=== PATIENT | male | born 1930 | race Caucasian/White ===

== ENCOUNTER 2016-07-29 14:09 | Outpatient (CLI) | END 2016-07-29 14:10 | disposition home or self-care (01) ==

== ENCOUNTER 2016-08-05 13:42 | Outpatient (CLI) | payer MEDICARE, OTHER | END 2016-08-05 13:43 | disposition home or self-care (01) | DX: I48.91 Unspecified atrial fibrillation (principal); Z79.01 Long term (current) use of anticoagulants ==

== ENCOUNTER 2016-08-25 13:50 | Outpatient (CLI) | payer MEDICARE, OTHER | END 2016-08-25 13:51 | disposition home or self-care (01) | DX: I48.91 Unspecified atrial fibrillation (principal); Z79.01 Long term (current) use of anticoagulants ==

== ENCOUNTER 2016-09-22 14:12 | Outpatient (CLI) | payer MEDICARE, OTHER | END 2016-09-22 14:13 | disposition home or self-care (01) | DX: I48.91 Unspecified atrial fibrillation (principal); Z79.01 Long term (current) use of anticoagulants ==

== ENCOUNTER 2016-10-19 11:18 | Outpatient (CLI) | payer MEDICARE, OTHER | END 2016-10-19 11:19 | disposition home or self-care (01) | DX: I48.91 Unspecified atrial fibrillation (principal); Z79.01 Long term (current) use of anticoagulants ==

== ENCOUNTER 2016-11-02 11:32 | Outpatient (CLI) | payer MEDICARE, OTHER | END 2016-11-02 11:33 | disposition home or self-care (01) | DX: I48.91 Unspecified atrial fibrillation (principal); Z79.01 Long term (current) use of anticoagulants ==

== ENCOUNTER 2016-11-16 13:35 | Outpatient (CLI) | payer MEDICARE, OTHER | END 2016-11-16 13:36 | DX: I48.91 Unspecified atrial fibrillation (principal); Z79.01 Long term (current) use of anticoagulants ==

== ENCOUNTER 2016-12-04 09:48 | Outpatient (CLI) | payer MEDICARE, OTHER | END 2016-12-04 09:49 | disposition home or self-care (01) | DX: I48.91 Unspecified atrial fibrillation (principal); Z79.01 Long term (current) use of anticoagulants ==

== ENCOUNTER 2016-12-31 08:00 | Outpatient (CLI) | payer MEDICARE, OTHER | END 2016-12-31 08:01 | disposition home or self-care (01) | LOC: LAB.N 08:00 | PROVIDERS: ATTEND Internal Medicine | DX: I48.91 Unspecified atrial fibrillation (principal) | CPT/HCPCS: 85610 ==

== ENCOUNTER 2017-01-07 10:06 | Outpatient (CLI) | payer MEDICARE, OTHER | END 2017-01-07 10:07 | disposition home or self-care (01) | LOC: LAB.N 10:06 | PROVIDERS: ATTEND Internal Medicine | DX: I48.91 Unspecified atrial fibrillation (principal) | CPT/HCPCS: 85610 ==

== ENCOUNTER 2017-02-01 08:00 | Outpatient (CLI) | payer MEDICARE, OTHER | END 2017-02-01 08:01 | disposition home or self-care (01) | DX: I48.91 Unspecified atrial fibrillation (principal) ==

== ENCOUNTER 2017-03-01 08:00 | Outpatient (CLI) | payer MEDICARE, OTHER | END 2017-03-01 08:01 | disposition home or self-care (01) | LOC: LAB.N 08:00 | PROVIDERS: ATTEND Internal Medicine | DX: I48.91 Unspecified atrial fibrillation (principal) | CPT/HCPCS: 85610 ==

== ENCOUNTER 2017-03-15 09:58 | Outpatient (CLI) | payer MEDICARE, OTHER | END 2017-03-15 09:59 | LOC: LAB.N 09:58 | PROVIDERS: ATTEND Internal Medicine | DX: I48.91 Unspecified atrial fibrillation (principal) | CPT/HCPCS: 85610 ==

== ENCOUNTER 2017-03-31 13:13 | Outpatient (CLI) | payer MEDICARE, OTHER | END 2017-03-31 13:14 | LOC: LAB.N 13:13 | PROVIDERS: ATTEND Internal Medicine | DX: I48.91 Unspecified atrial fibrillation (principal); Z79.01 Long term (current) use of anticoagulants | CPT/HCPCS: 85610 ==

== ENCOUNTER 2017-04-23 14:46 | Outpatient (CLI) | payer MEDICARE, OTHER | END 2017-04-23 14:47 | disposition home or self-care (01) | LOC: LAB.N 14:46 | PROVIDERS: ATTEND Internal Medicine | DX: I48.91 Unspecified atrial fibrillation (principal); Z79.01 Long term (current) use of anticoagulants | CPT/HCPCS: 85610 ==

== ENCOUNTER 2017-05-26 10:46 | Outpatient (CLI) | payer MEDICARE, OTHER ==
[2017-05-26 13:35] LABS: INR 4.5 (0.8-1.2)
== END 2017-05-26 10:47 | disposition home or self-care (01) ==
LOC: LAB.N 10:46
PROVIDERS: ATTEND Internal Medicine
DX: I48.91 Unspecified atrial fibrillation (principal); Z79.01 Long term (current) use of anticoagulants
CPT/HCPCS: 85610

== ENCOUNTER 2017-07-07 14:46 | Outpatient (CLI) | payer MEDICARE, OTHER | END 2017-07-07 14:47 | disposition home or self-care (01) | LOC: LAB.N 14:46 | PROVIDERS: ATTEND Internal Medicine | DX: E87.5 Hyperkalemia (principal) | CPT/HCPCS: 36415; 84132 ==

== ENCOUNTER 2017-07-20 08:00 | Outpatient (CLI) | payer MEDICARE, OTHER | END 2017-07-20 08:01 | disposition home or self-care (01) | LOC: LAB.N 08:00 | PROVIDERS: ATTEND Internal Medicine | DX: I48.91 Unspecified atrial fibrillation (principal); Z79.01 Long term (current) use of anticoagulants | CPT/HCPCS: 85610 ==

== ENCOUNTER 2017-08-18 11:01 | Outpatient (CLI) | payer MEDICARE, OTHER | END 2017-08-18 11:02 | disposition home or self-care (01) | LOC: LAB.N 11:01 | PROVIDERS: ATTEND Internal Medicine | DX: I48.91 Unspecified atrial fibrillation (principal); Z79.01 Long term (current) use of anticoagulants | CPT/HCPCS: 85610 ==

== ENCOUNTER 2017-08-24 13:50 | Outpatient (CLI) | payer MEDICARE, OTHER | END 2017-08-24 13:51 | disposition home or self-care (01) | LOC: DI 13:50 | PROVIDERS: ATTEND Internal Medicine | DX: R06.09 Other forms of dyspnea (principal); I51.7 Cardiomegaly; Z95.0 Presence of cardiac pacemaker | CPT/HCPCS: 93306 ==

== ENCOUNTER 2017-09-22 08:00 | Outpatient (CLI) | payer MEDICARE, OTHER | END 2017-09-22 08:01 | disposition home or self-care (01) | LOC: LAB.N 08:00 | PROVIDERS: ATTEND Internal Medicine | DX: I48.91 Unspecified atrial fibrillation (principal); Z79.01 Long term (current) use of anticoagulants | CPT/HCPCS: 85610 ==

== ENCOUNTER 2017-09-27 09:45 | Outpatient (CLI) | payer MEDICARE, OTHER ==
--- NOTE | 2017-09-27 12:26 | Nuclear Medicine Report ---
EXAM: VENTILATION/PERFUSION SCAN (V/Q SCAN) EXAM DATE: 09/27/2017 10:54 AM. CLINICAL HISTORY: PULMONARY HYPERTENSION. COMPARISON: Chest radiograph, same day. TECHNIQUE: Patient was administered 39.9 mCi of technetium 99m DTPA aerosol by inhalation and 8 stand siomara ventilation images of the lungs were obtained. Next, the patient was injected with 5.3 mCi of ginger hnetium 99m MAA intravenously and 8 standard perfusion images of the lungs were obtained. FINDINGS: Ventilation Scan: There is heterogeneous ventilation pattern with central deposition of the aerosoliz ed radiotracer and multiple areas of decreased or absent perfusion bilaterally. Perfusion Scan: The perfusion pattern is more homogeneous than ventilation. There are several small p eripheral matching ventilation and perfusion defects. No mismatched perfusion defects are evident. IMPRESSION: Low probability pattern for acute pulmonary embolism. [facility] Referring Provider Line: [phone] SITE ID: [id number]
--- NOTE | 2017-09-27 13:09 | XRAY Report ---
TWO VIEW CHEST: 09/27/2017 CLINICAL INDICATION: Pulmonary hypertension. COMPARISON: 10/14/2010. FINDINGS: Frontal and lateral views of the chest demonstrate changes of previous cardiac surgery, stable. The heart is mildly enlarged. Left subclavian single chamber pacemaker is stable. The lungs demonstrate emphysema and fibrosis, increased from previous. Small left effusion is present. No pneumothorax. IMPRESSION: PROGRESSION OF EMPHYSEMA AND FIBROSIS. SMALL LEFT PLEURAL EFFUSION. STABLE POSTOPERATIVE CHANGES AND PACEMAKER. TD: 09/27/2017 13:08
== END 2017-09-27 09:46 | disposition home or self-care (01) ==
LOC: DI 09:45
PROVIDERS: ATTEND Internal Medicine Cardiovascular Disease
DX: I27.20 Pulmonary hypertension, unspecified (principal); J43.9 Emphysema, unspecified; J84.10 Pulmonary fibrosis, unspecified; J90 Pleural effusion, not elsewhere classified; Z95.0 Presence of cardiac pacemaker
CPT/HCPCS: 71046; 78582; A9539; A9540

== ENCOUNTER 2017-09-29 08:00 | Outpatient (CLI) | payer MEDICARE, OTHER | END 2017-09-29 08:01 | disposition home or self-care (01) | LOC: LAB.N 08:00 | PROVIDERS: ATTEND Internal Medicine | DX: I48.91 Unspecified atrial fibrillation (principal); Z79.01 Long term (current) use of anticoagulants | CPT/HCPCS: 85610 ==

== ENCOUNTER 2017-10-08 11:47 | Outpatient (CLI) | payer MEDICARE, OTHER ==
--- NOTE | 2017-10-08 15:28 | CT Report ---
CHEST CT: 10/08/2017 COMPARISON: None. INDICATION: Pulmonary hypertension. TECHNIQUE: Noncontrast axial imaging of the chest with coronal and sagittal reformats. FINDINGS: ICD, sternotomy, and heart valve annular prostheses are noted. There are small pleural effusions with underlying atelectasis. The lungs appear otherwise clear. No pneumothorax. The main pulmonary artery measures 4.4 cm. Right pulmonary artery 3.9 cm. Left pulmonary artery 3.2 cm. There are dense atherosclerotic calcifications of the great vessels and coronary arteries. There are annular prostheses of the mitral and aortic valves. Exophytic left renal cyst is incompletely evaluated. Limited upper abdomen appears otherwise unremarkable in the absence of intravenous contrast. No bone lesions. IMPRESSION: 1. THERE ARE ENLARGED PULMONARY ARTERIES, CONSISTENT WITH THE GIVEN HISTORY OF PULMONARY HYPERTENSION. 2. THERE ARE BILATERAL PLEURAL EFFUSIONS. In accordance with CT protocol optimization, one or more of the following dose reduction techniques were utilized for this exam: automated exposure control, adjustment of mA and/or KV based on patient size, or use of iterative reconstructive technique. TD: 10/08/2017 15:27 MTDD
== END 2017-10-08 11:48 | disposition home or self-care (01) ==
LOC: DI 11:47
PROVIDERS: ATTEND Internal Medicine
DX: I27.20 Pulmonary hypertension, unspecified (principal); J90 Pleural effusion, not elsewhere classified
CPT/HCPCS: 71250; 94010; 94729

== ENCOUNTER 2017-10-18 08:00 | Outpatient (CLI) | payer MEDICARE, OTHER ==
[2017-10-18 19:26] LABS: PT - PROTHROMBIN TIME 42.8 secs (9.9-12.6)
== END 2017-10-18 08:01 ==
LOC: LAB.N 08:00
PROVIDERS: ATTEND Internal Medicine
DX: I48.91 Unspecified atrial fibrillation (principal); Z79.01 Long term (current) use of anticoagulants
CPT/HCPCS: 36415; 85610

== ENCOUNTER 2017-10-23 11:26 | Emergency (ER) | payer MEDICARE, OTHER ==
--- NOTE | 2017-10-23 12:38 | ED Physician Documentation ---
PD HPI LOWER EXT INJURY - Stated complaint Stated Complaint: LEFT LEG PX - Chief complaint Chief Complaint: Ext Problem - History obtained from History obtained from: Patient - History of Present Illness PD HPI LOW EXT INJURY LOCATION: Other (This is a very pleasant 87-year-old gentleman who is status post CABG with left leg vein harvesting remotely, he is on warfarin and digoxin. He had an INR that was high last week and his dose was adjusted, but it has not been checked again since. 2 days ago he had a mechanical slip and fall in his bedroom, he is not quite sure what happened to his leg, maybe it went under him. Ever since then he has had significant swelling and discoloration of the left leg. There was no other injury. He is sure he did not hit his head.) Review of Systems Constitutional: denies: Fever, Chills Cardiac: denies: Chest pain / pressure, Palpitations Respiratory: denies: Dyspnea, Cough GI: denies: Abdominal Pain, Nausea, Vomiting PD PAST MEDICAL HISTORY - Past Medical History Past Medical History: Yes Cardiovascular: Coronary artery disease, Valve disorder Respiratory: Shortness of breath Neuro: None Endocrine/Autoimmune: None GI: None : Other HEENT: None Psych: None Musculoskeletal: None Derm: None Other Past Medical History: Urostomy - Past Surgical History Past Surgical History: Yes Cardiovascular: CABG, Valve replacement - Present Medications Home Medications: Ambulatory Orders Medication Instructions Recorded Confirmed Atenolol [Tenormin] 1 tab PO DAILY 10/23/17 10/23/17 Cephalexin [Keflex] 500 mg PO QID #40 capsule 10/23/17 Digoxin 1 tab PO DAILY 10/23/17 10/23/17 Warfarin Sodium [Coumadin] 1 tab PO DAILY 10/23/17 10/23/17 - Allergies Allergies/Adverse Reactions: Allergies Allergy/AdvReac Type Severity Reaction Status Date / Time No Known Drug Allergies Allergy Verified 10/23/17 11:37 - Social History Does the pt smoke?: No Smoking Status: Never smoker Does the pt drink ETOH?: No Does the pt have substance abuse?: No - Immunizations Immunizations are current?: Yes - POLST Patient has POLST: No PD ED PE NORMAL - Vitals Vital signs reviewed: Yes (Pulse on my exam is 66) - General General: Alert and oriented X 3, No acute distress - Neck Neck: Supple, no meningeal sign, No bony TTP - Cardiac Cardiac: Other (Regular rate and rhythm with frequent extrasystoles, he has an audible S3.) - Respiratory Respiratory: No respiratory distress, Clear bilaterally - Abdomen Abdomen: Normal bowel sounds, Soft, Non tender - Derm Derm: Normal color, Warm and dry - Extremities Extremities: Other (Very tender about the left ankle with discoloration from the ankle to the upper calf and swelling. He also has a ecchymosis centered over the left knee. The foot is warm and well perfused but because of swelling I am unable to appreciate pedal pulses but he has normal pulse oximetry waveform in that foot. There is redness and swelling of the left fourth toe as well.) - Neuro Neuro: Alert and oriented X 3, Normal speech - Psych Psych: Normal mood, Normal affect Results - Vitals Vitals: Vital Signs - 24 hr 10/23/17 10/23/17 11:32 14:34 Temperature 36 C L Heart Rate 126 H 60 Respiratory 18 16 Rate Blood Pressure 158/46 H 188/77 H O2 Saturation 95 100 Oxygen O2 Source Room air - Labs Labs: Laboratory Tests 10/23/17 10/23/17 10/23/17 13:36 13:36 13:36 WBC 9.3 RBC 4.25 L Hgb 11.9 L Hct 36.2 L MCV 85.3 MCH 28.1 MCHC 33.0 RDW 15.1 H Plt Count 143 MPV 7.5 Neut # 7.5 H Lymph # 0.6 L Cooper # 1.1 H Eos # 0.1 Baso # 0.0 Absolute Nucleated RBC 0.00 Nucleated RBC % 0.0 ESR 66 H PT 41.2 H INR 3.8 H Sodium Potassium Chloride Carbon Dioxide Anion Gap BUN Creatinine Estimated GFR (MDRD) Glucose Calcium Total Bilirubin AST ALT Alkaline Phosphatase C-Reactive Protein Total Protein Albumin Globulin Albumin/Globulin Ratio Lipase 10/23/17 13:36 WBC RBC Hgb Hct MCV MCH MCHC RDW Plt Count MPV Neut # Lymph # Cooper # Eos # Baso # Absolute Nucleated RBC Nucleated RBC % ESR PT INR Sodium 136 Potassium 5.0 Chloride 105 Carbon Dioxide 24 Anion Gap 7.0 BUN 50 H Creatinine 1.9 H Estimated GFR (MDRD) 34 L Glucose 105 H Calcium 8.8 Total Bilirubin 0.7 AST 23 ALT 15 Alkaline Phosphatase 58 C-Reactive Protein 17.3 H Total Protein 7.1 Albumin 3.6 Globulin 3.5 Albumin/Globulin Ratio 1.0 Lipase 24 - Rads (name of study) XRays L ankle/foot/tibfib/knee Radiology: EMP read contemporaneously (All neg) LLE DVt study Radiology: Prelim report reviewed (no DVT) PD MEDICAL DECISION MAKING - ED course ED course: 87-year-old gentleman with left leg pain, does not seem to be a vascular issue, seems to be cellulitis emanating from the left fourth toe, nothing to drain at this juncture. His white count is normal but his inflammatory markers are elevated. He was administered Ancef here and close follow-up with his physician was advised. He felt comfortable going home. Departure - Departure Disposition: Home, Self Care Clinical Impression: Supratherapeutic INR Pain in extremity Qualifiers: Extremity pain location: lower extremity Laterality: left Qualified Code(s): M79.605 - Pain in left leg Cellulitis Qualifiers: Site of cellulitis: extremity Site of cellulitis of extremity: lower extremity Laterality: left Qualified Code(s): L03.116 - Cellulitis of left lower limb Condition: Good Record reviewed to determine appropriate education?: Yes Instructions: Cellulitis Dc Prescriptions: Cephalexin [Keflex] 500 mg PO QID #40 capsule Comments: Skip your warfarin today and tomorrow, restarted on Wednesday, taking it only every other day while you are on antibiotics. He should have your INR checked frequently well on antibiotics. Follow-up with Dr. Echevarria Wednesday or Wednesday, return if worsening.
--- NOTE | 2017-10-23 13:41 | XRAY Preliminary Report ---
Exam: XR TIB/FIB LT IMPRESSION: No fracture or subluxation. [facility] SITE ID: [id number]
--- NOTE | 2017-10-23 13:42 | XRAY Report ---
EXAM: LEFT TIBIA/FIBULA RADIOGRAPHY EXAM DATE: 10/23/2017 01:22 PM. CLINICAL HISTORY: Leg injury. COMPARISON: None. TECHNIQUE: 2 views. FINDINGS: Bones: Normal. No fracture or bone lesion. Joints: Joint space and alignment appear satisfactory. Soft Tissues: There are soft tissue surgical clips. IMPRESSION: No fracture or subluxation. [facility] Referring Provider Line: [phone] SITE ID: [id number]
--- NOTE | 2017-10-23 13:44 | XRAY Report ---
EXAM: LEFT KNEE RADIOGRAPHY EXAM DATE: 10/23/2017 01:22 PM. CLINICAL HISTORY: Leg injury. COMPARISON: None. TECHNIQUE: 4 views. FINDINGS: Bones: No acute fracture. Joints: Joint space and alignment appear satisfactory. No joint effusion. Soft Tissues: There are vascular calcifications. IMPRESSION: No fracture or subluxation. [facility] Referring Provider Line: [phone] SITE ID: [id number]
--- NOTE | 2017-10-23 13:44 | XRAY Preliminary Report ---
Exam: XR KNEE 4 VIEW LT IMPRESSION: No fracture or subluxation. [facility] SITE ID: [id number]
[2017-10-23 13:47] LABS: BASOPHILS % (AUTO) 0.3 %; EOSINOPHILS # (AUTO) 0.1 10^3/uL (0.0-0.7); EOSINOPHILS % (AUTO) 1.1 %; HGB - HEMOGLOBIN 11.9 g/dL (14.0-18.0); LYMPHOCYTES # (AUTO) 0.6 10^3/uL (1.5-3.5); LYMPHOCYTES % (AUTO) 6.5 %; MEAN CORPUSCULAR HEMOGLOBIN 28.1 pg (27.0-31.0); MEAN CORPUSCULAR VOLUME 85.3 fL (80.0-94.0); MEAN PLATELET VOLUME 7.5 fL (7.4-11.4); MONOCYTES # (AUTO) 1.1 10^3/uL (0.0-1.0); MONOCYTES % (AUTO) 12.1 %; NEUTROPHILS # (AUTO) 7.5 10^3/uL (1.5-6.6); PLT - PLATELET COUNT 143 10^3/uL (130-450); RED BLOOD COUNT 4.25 10^6/uL (4.70-6.10); RED CELL DISTRIBUTION WIDTH 15.1 % (12.0-15.0); WHITE BLOOD COUNT 9.3 x10^3/uL (4.8-10.8)
--- NOTE | 2017-10-23 13:50 | XRAY Preliminary Report ---
Exam: XR FOOT 3 VIEW LT IMPRESSION: Soft tissue swelling without acute fracture. [facility] SITE ID: [id number]
--- NOTE | 2017-10-23 13:50 | XRAY Report ---
EXAM: LEFT FOOT RADIOGRAPHY EXAM DATE: 10/23/2017 01:22 PM. CLINICAL HISTORY: Leg injury. COMPARISON: None. TECHNIQUE: 3 views. FINDINGS: Bones: Normal. No fractures or bone lesions. Joints: There is mild joint space narrowing and degenerative disease of the first metatarsal-phalange al joint. Soft Tissues: There is soft tissue swelling of the midfoot and forefoot. IMPRESSION: Soft tissue swelling without acute fracture. [facility] Referring Provider Line: [phone] SITE ID: [id number]
--- NOTE | 2017-10-23 13:52 | XRAY Preliminary Report ---
Exam: XR ANKLE 3 VIEW LT IMPRESSION: Soft tissue swelling without acute fracture. [facility] SITE ID: [id number]
--- NOTE | 2017-10-23 13:52 | XRAY Report ---
EXAM: LEFT ANKLE RADIOGRAPHY EXAM DATE: 10/23/2017 01:21 PM. CLINICAL HISTORY: Leg injury. COMPARISON: None. TECHNIQUE: 3 views. FINDINGS: Bones: Normal. No fractures or bone lesions. Joints: Normal. No effusion. No subluxations. The ankle mortise is normally aligned. Soft Tissues: There is generalized ankle soft tissue swelling. There are surgical clips in the medial lower leg. IMPRESSION: Soft tissue swelling without acute fracture. [facility] Referring Provider Line: [phone] SITE ID: [id number]
[2017-10-23 13:54] LABS: INR 3.8 (0.8-1.2); PT - PROTHROMBIN TIME 41.2 secs (9.9-12.6)
[2017-10-23 14:04] LABS: ALBUMIN 3.6 g/dL (3.2-5.5); BILIRUBIN,TOTAL 0.7 mg/dL (0.2-1.0); CALCIUM 8.8 mg/dL (8.5-10.3); CREATININE 1.9 mg/dL (0.6-1.2); CRP - C-REACTIVE PROTEIN 17.3 mg/dL (0-1.0); TOTAL PROTEIN 7.1 g/dL (6.7-8.2)
--- NOTE | 2017-10-23 14:31 | Ultrasound Report ---
EXAM: LEFT LOWER EXTREMITY VENOUS ULTRASOUND EXAM DATE: 10/23/2017 01:40 PM. CLINICAL HISTORY: Swelling redness. COMPARISON: None. TECHNIQUE: Real-time sonographic vascular imaging was performed by the fryer operator through the lower extremity utilizing both color-flow and Doppler spectral analysis. Multiple security systems sales representative static germán ges were saved for review. FINDINGS: Common Femoral Vein (CFV): Normal. CFV-GSV Junction: Normal. Profunda Femoral Vein (PFV): Normal. Femoral Vein (FV) Prox: Normal. Femoral Vein (FV) Mid: Normal. Femoral Vein (FV) Dist: Normal. Popliteal Vein: Normal. Posterior Tibial Veins: Normal. Peroneal Veins: Normal. Other: None. IMPRESSION: No evidence for deep venous thrombosis. [facility] Referring Provider Line: [phone] SITE ID: [id number]
--- NOTE | 2017-10-23 14:31 | Ultrasound Preliminary Report ---
Exam: US DUPLEX EXT VEINS LEFT IMPRESSION: No evidence for deep venous thrombosis. [facility] SITE ID: [id number]
[2017-10-23 14:35] VITALS: BP 188/77
[2017-10-23] MEDS ORDERED: ceFAZolin 1 GM VIAL IM STA (14:50)
== END 2017-10-23 15:20 | disposition home or self-care (01) ==
LOC: ED 11:26
DX: M79.605 Pain in left leg (principal); L03.116 Cellulitis of left lower limb; W18.39XA Other fall on same level, initial encounter; D68.9 Coagulation defect, unspecified; I25.10 Atherosclerotic heart disease of native coronary artery without angina pectoris; Z95.1 Presence of aortocoronary bypass graft; Z79.01 Long term (current) use of anticoagulants
CPT/HCPCS: 36415; 80053; 83690; 85025; 85610; 85651; 86140; 96372; 99283

== ENCOUNTER 2017-10-28 20:15 | Outpatient (CLI) | payer MEDICARE, OTHER | END 2017-10-28 20:16 | disposition short-term general hospital (02) | LOC: EMS 20:15 | PROVIDERS: ATTEND Surgery | DX: S09.90XA Unspecified injury of head, initial encounter (principal); W18.39XA Other fall on same level, initial encounter | CPT/HCPCS: A0425; A0429 ==

== ENCOUNTER 2017-10-31 09:21 | Outpatient (CLI) | payer MEDICARE, OTHER | END 2017-10-31 09:22 | disposition critical access hospital (66) | LOC: EMS 09:21 | PROVIDERS: ATTEND Surgery | DX: R53.83 Other fatigue (principal); R53.1 Weakness; R46.4 Slowness and poor responsiveness | CPT/HCPCS: A0425; A0427 ==

== ENCOUNTER 2017-10-31 10:11 | Emergency (ER) | payer MEDICARE, OTHER ==
--- NOTE | 2017-10-31 10:25 | ED Physician Documentation ---
History of Present Illness - Stated complaint Stated Complaint: GLF - Additonal information Additional information: hx from EMS pt and daughter who is a nurse at [employer] 87 male on coumadin has a PPM no advance directive lives at home had an infected toe so was wearing a boot to protect it, stumbled and fell backward against a car 2 days ago suferring a head injury - seen at [place] [facility], CTH showed no bleed CTCS showed no fx INR was 3.9 and coumadin was decreased, pt was dced he lost his balance and fell in the shower again but seemed to have only hiurt his elbow that time last night he started to develop AMS an dpoor appaeetite and this AM he is very altered and has unequal pupils denies JAVIER and neck pain no NV no numbness weakness Review of Systems Constitutional: denies: Fever, Chills Ears: denies: Drainage/discharge Nose: denies: Epistaxis Cardiac: denies: Chest pain / pressure Respiratory: denies: Dyspnea GI: denies: Abdominal Pain, Nausea, Vomiting Skin: reports: Abrasion (s) (R scalp R elbow chin) Neurologic: reports: Altered mental status, Head injury. denies: Focal weakness , Numbness, Headache Endocrine: reports: Easy bruising / bleeding PD PAST MEDICAL HISTORY - Past Medical History Cardiovascular: Coronary artery disease, Valve disorder Respiratory: Shortness of breath Neuro: None Endocrine/Autoimmune: None GI: None : Other HEENT: None Psych: None Musculoskeletal: None Derm: None - Past Surgical History Past Surgical History: Yes Cardiovascular: CABG, Valve replacement - Present Medications Home Medications: Ambulatory Orders Medication Instructions Recorded Confirmed Atenolol [Tenormin] 1 tab PO DAILY 10/23/17 10/23/17 Cephalexin [Keflex] 500 mg PO QID #40 capsule 10/23/17 Digoxin 1 tab PO DAILY 10/23/17 10/23/17 Warfarin Sodium [Coumadin] 1 tab PO DAILY 10/23/17 10/23/17 - Allergies Allergies/Adverse Reactions: Allergies Allergy/AdvReac Type Severity Reaction Status Date / Time No Known Drug Allergies Allergy Verified 10/23/17 11:37 - Social History Does the pt smoke?: No Smoking Status: Never smoker Does the pt drink ETOH?: No Does the pt have substance abuse?: No - Immunizations Immunizations are current?: Yes - POLST Patient has POLST: No PD ED PE NORMAL - Vitals Vital signs reviewed: Yes - General General: No: Alert and oriented X 3 (answer basic questions, not follwoing all commands) - HEENT HEENT: No: Atraumatic (abrasion to R scalp from hitting car, abrasion to chin from catching on zipper after flexing neck with head injury, unequal EOMI (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 No: RRR (irreg) - Respiratory Respiratory: No respiratory distress - Abdomen Abdomen: Soft, Non tender - Derm Derm: Normal color - Neuro Neuro: No motor deficit, No sensory deficit, Normal speech, Other (alert answere some basic questions). No: flour blender 2-12 intact Eye Opening: Spontaneous Motor: Obeys Commands Verbal: Oriented GCS Score: 15 Results - Vitals Vitals: Vital Signs - 24 hr 10/31/17 10/31/17 10:14 10:54 Temperature 36.0 C L Heart Rate 59 L 65 Respiratory 16 22 Rate Blood Pressure 182/70 H 189/72 H O2 Saturation 94 96 Oxygen O2 Source Nasal cannula - Labs Labs: Laboratory Tests 10/31/17 10:25 Whole Blood INR 2.7 H - Rads (name of study) CTH Radiology: See rad report (large bleed in the R ventricle and less in the L ventricle and small amt SAH, no shift, mass vs clotted blood in R ventricle) CTCS Radiology: See rad report (no acute C spine injury) PD MEDICAL DECISION MAKING - ED course ED course: large R ventricle and small L ventricle and SAH bleed on CT without shift no POLST pt baseline independent functional and lives at home - d/w pt and family and they would like to be considered for neurosurg if possible gave TXA and vit K, FFP will not be thawed prior to anticipated arrival of [facility] pt with 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, also PPM and a fib - reversing coumadin is not without risk - d/w pt and family that the ICH is the most imminently life threatening and they understand and agree with my decision - also d/w HV at this point pt is maintaining his airway and is awake and alert - d/w [facility] as well and they agree to forgo intubation and preserve ability to communicate with pt and do serial neuro exams unless his status changes BP running 180/70 and HR high 50s so MC rec nicardapine or labetolol, pt already on BB would not want to add CCB, both will slow rate as well, started with 10 mg labetolol, he has a PPM in case of more sig bradycardia Departure - Departure Disposition: 02 Transfer Acute Care Hosp Clinical Impression: Anticoagulant long-term use ICH (intracerebral hemorrhage) Qualifiers: Intracerebral hemorrhage etiology: traumatic Encounter type: initial encounter Laterality: unspecified laterality Loss of consciousness presence/duration: without LOC Qualified Code(s): S06.360A - Traumatic hemorrhage of cerebrum, unspecified, without loss of consciousness, initial encounter Head injury Qualifiers: Encounter type: initial encounter Qualified Code(s): S09.90XA - Unspecified injury of head, initial encounter Condition: Serious Discharge Date/Time: 10/31/17 11:39
[2017-10-31] MEDS ORDERED: TRANEXAMIC ACID 1,000 MG in SODIUM CHLORIDE 0.9% 100ML 100 ML IV STA (10:35)
[2017-10-31] MEDS ORDERED: PHYTONADIONE 10 MG/ML AMP IVP STA (10:44)
[2017-10-31 10:54] VITALS: BP 189/72
--- NOTE | 2017-10-31 10:59 | CT Preliminary Report ---
Exam: CT HEAD W/O IMPRESSION: Acute intraventricular hemorrhage markedly expands right lateral ventricle. Small amount of right intraventricular hemorrhage. Trace subarachnoid hemorrhage along the falx. No signficant mid line shift. Findings relayed and read back to at 10:53 AM today. [facility] SITE ID: [id number]
--- NOTE | 2017-10-31 10:59 | CT Report ---
EXAM: CT HEAD EXAM DATE: 10/31/2017 10:37 AM. CLINICAL HISTORY: Fall [place] 2 days ago on couamdin AMS unequal pupils. COMPARISON: None. TECHNIQUE: Multiaxial CT images were obtained from the foramen magnum to the vertex. Reformats: Coron al. IV contrast: None. In accordance with CT protocol optimization, one or more of the following dose reduction techniques w ere utilized for this exam: automated exposure control, adjustment of mA and/or KV based on patient s ize, or use of iterative reconstructive technique. FINDINGS: Parenchyma: Intraventricular hemorrhage markedly expands the right temporal and occipital horn of the lateral ventricle up to 3.5 cm in transverse dimension. Small amount of intraventricular hemorrhage also seen within the left occipital horn of the lateral ventricle. Trace subarachnoid hemorrhage kamryn g the right parietal and frontal falx (axial images 24 and 21). No significant midline shift. Sinuses and Orbits: Imaged paranasal sinuses, orbits, and mastoids show no significant abnormality. Bones: No evidence of fracture or calvarial defect. Other: None. IMPRESSION: Acute intraventricular hemorrhage markedly expands right lateral ventricle. Small amount of right intraventricular hemorrhage. Trace subarachnoid hemorrhage along the falx. No signficant mid line shift. Findings relayed and read back to at 10:53 AM today. [facility] Referring Provider Line: [phone] SITE ID: [id number]
[2017-10-31] MEDS ORDERED: niCARdipine 20 MG/200 ML 20 MG/200 ML BAG IV STA (11:08)
--- NOTE | 2017-10-31 11:11 | CT Preliminary Report ---
Exam: CT CERVICAL SPINE W/O IMPRESSION: 1. No acute cervical spine fracture or spondylolisthesis. Multilevel degenerative disk disease and fa cet arthropathy. 2. Partially visualized lung apices with probable small bilateral pleural effusions. [facility] SITE ID: [id number]
--- NOTE | 2017-10-31 11:11 | CT Report ---
EXAM: CT CERVICAL SPINE WITHOUT CONTRAST DATE: 10/31/2017 10:37 AM. HISTORY: Fall HI 2 days ago on coumadin AMS unequal pupils. COMPARISONS: None. TECHNIQUE: Thin-section axial images were acquired of the cervical spine without contrast. Post-proce ssing: Coronal and sagittal reformats. Other: None. In accordance with CT protocol optimization, one or more of the following dose reduction techniques w ere utilized for this exam: automated exposure control, adjustment of mA and/or KV based on patient s ize, or use of iterative reconstructive technique. FINDINGS: Alignment: No spondylolisthesis. Mild levoconvex curvature. Bones: No acute fracture. Multilevel degenerative change. Small osteophytes. Interspace Levels/Facets: Multilevel degenerative disk disease and facet arthropathy. Disk space narrowing with endplate sclero sis and osteophyte formation. Degenerative change appears most prominent at C1-C2, C5-C6, C6-C7, C7-T 1. Multilevel facet arthropathy also noted. 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 Musculature: No fatty atrophy. Other: No prevertebral soft tissue swelling. Partially visualized probable small effusion at the lung apices. Prior sternotomy changes. Atherosclerotic vascular calcification. IMPRESSION: 1. No acute cervical spine fracture or spondylolisthesis. Multilevel degenerative disk disease and fa cet arthropathy. 2. Partially visualized lung apices with probable small bilateral pleural effusions. [facility] Referring Provider Line: [phone] SITE ID: [id number]
[2017-10-31] MEDS ORDERED: LABETALOL 20 MG/4 ML SYRINGE IVP STA (11:14)
== END 2017-10-31 11:39 | disposition short-term general hospital (02) ==
LOC: ED 10:11
DX: S06.360A Traumatic hemorrhage of cerebrum, unspecified, without loss of consciousness, initial encounter (principal); W18.30XA Fall on same level, unspecified, initial encounter; Z95.1 Presence of aortocoronary bypass graft; Z79.01 Long term (current) use of anticoagulants; Z95.2 Presence of prosthetic heart valve
CPT/HCPCS: 70450; 72125; 85610; 86900; 86901; 96374; 96375; 99284

== ENCOUNTER 2018-01-08 17:49 | Emergency (ER) | payer MEDICARE, OTHER ==
[2018-01-08] MEDS ORDERED: SODIUM CHLORIDE 0.9% 500 ML IV ONE (18:17)
[2018-01-08] MEDS ORDERED: cefTRIAXone 1 GM VIAL IVP STA (18:18)
--- NOTE | 2018-01-08 18:31 | ED Physician Documentation ---
History of Present Illness - Stated complaint Stated Complaint: MALE - Chief complaint Chief Complaint: UTI - History obtained from History obtained from: Patient, Family - History of Present Illness Timing: Today Pain level max: 0 Pain level now: 0 - Additonal information Additional information: Patient is an 87-year-old gentleman who presents to the since he department with dark cloudy urine in his urostomy bag today. No fevers. No vomiting. No pain. Does have a history of urosepsis in the past. Currently no complaints. No cough. No abdominal pain. Has not been on antibiotics recently. Nothing makes it better or worse Review of Systems Constitutional: denies: Fever, Chills Ears: denies: Ear pain Nose: denies: Rhinorrhea / runny nose, Congestion Throat: denies: Sore throat Cardiac: denies: Chest pain / pressure Respiratory: denies: Cough Skin: denies: Rash Musculoskeletal: denies: Neck pain PD PAST MEDICAL HISTORY - Past Medical History Cardiovascular: Coronary artery disease, Valve disorder Respiratory: Shortness of breath Endocrine/Autoimmune: None GI: None : Other HEENT: None Psych: None Musculoskeletal: None Derm: None - Past Surgical History Past Surgical History: Yes Cardiovascular: CABG, Valve replacement - Present Medications Home Medications: Ambulatory Orders Medication Instructions Recorded Confirmed Warfarin Sodium [Coumadin] 1 tab PO DAILY 10/23/17 10/23/17 Carvedilol [Coreg] 25 mg PO BID 01/08/18 01/08/18 Cefpodoxime Proxetil 200 mg PO BID #20 tablet 01/08/18 Lisinopril 20 mg BID 01/08/18 01/08/18 amLODIPine [Norvasc] 10 mg QDAC 01/08/18 01/08/18 - Allergies Allergies/Adverse Reactions: Allergies Allergy/AdvReac Type Severity Reaction Status Date / Time No Known Drug Allergies Allergy Verified 10/23/17 11:37 - Social History Does the pt smoke?: No Smoking Status: Never smoker Does the pt drink ETOH?: No Does the pt have substance abuse?: No - Immunizations Immunizations are current?: Yes - POLST Patient has POLST: No PD ED PE NORMAL - Vitals Vital signs reviewed: Yes - General General: Alert and oriented X 3, No acute distress - HEENT HEENT: PERRL, Moist mucous membranes - Neck Neck: Supple, no meningeal sign - Cardiac Cardiac: RRR, Strong equal pulses, Other (Mechanical valve sounds present) - Respiratory Respiratory: No respiratory distress, Clear bilaterally - Abdomen Abdomen: Soft, Non tender, Non distended, Other (Urostomy in right lower quadrant) - Back Back: No CVA TTP, No spinal TTP - Derm Derm: Warm and dry, No rash - Extremities Extremities: No edema - Neuro Neuro: Alert and oriented X 3 Results - Vitals Vitals: Vital Signs - 24 hr 01/08/18 01/08/18 01/08/18 17:53 19:18 19:21 Temperature 37.1 C 36.8 C Heart Rate 66 64 Respiratory 16 18 Rate Blood Pressure 135/62 H 128/70 O2 Saturation 94 93 Oxygen O2 Source Room air - Labs Labs: Laboratory Tests 01/08/18 01/08/18 01/08/18 18:17 18:26 18:26 WBC 10.2 RBC 3.55 L Hgb 10.1 L Hct 31.4 L MCV 88.5 MCH 28.3 MCHC 32.0 RDW 17.2 H Plt Count 189 MPV 7.2 L Neut # (Auto) 7.9 H Lymph # (Auto) 0.7 L [place] # (Auto) 1.2 H Eos # (Auto) 0.4 Baso # (Auto) 0.0 Absolute Nucleated RBC 0.00 Nucleated RBC % 0.0 PT 34.8 H INR 3.2 H Sodium Potassium Chloride Carbon Dioxide Anion Gap BUN Creatinine Estimated GFR (MDRD) Glucose Lactic Acid Calcium Total Bilirubin AST ALT Alkaline Phosphatase Total Protein Albumin Globulin Albumin/Globulin Ratio Lipase Urine Color YELLOW Urine Clarity TURBID Urine pH 5.5 Ur Specific [place] 1.025 Urine Protein >=300 Urine Glucose (UA) NEGATIVE Urine Ketones NEGATIVE Urine Occult Blood LARGE H Urine Nitrite NEGATIVE Urine Bilirubin NEGATIVE Urine Urobilinogen 0.2 (NORMAL) Ur Leukocyte Esterase LARGE H Urine RBC 6-10 H Urine WBC >25 H Urine WBC Clumps PRESENT Ur Squamous Epith Cells NONE SEEN Urine Bacteria Rare Ur Microscopic Review INDICATED Urine Culture Comments INDICATED 01/08/18 01/08/18 18:26 18:26 WBC RBC Hgb Hct MCV MCH MCHC RDW Plt Count MPV Neut # (Auto) Lymph # (Auto) [place] # (Auto) Eos # (Auto) Baso # (Auto) Absolute Nucleated RBC Nucleated RBC % PT INR Sodium 136 Potassium 5.1 H Chloride 109 Carbon Dioxide 20 L Anion Gap 7.0 BUN 48 H Creatinine 2.0 H Estimated GFR (MDRD) 32 L Glucose 123 H Lactic Acid 1.1 Calcium 8.8 Total Bilirubin 0.5 AST 16 ALT < 10 L Alkaline Phosphatase 54 Total Protein 7.7 Albumin 3.5 Globulin 4.2 Albumin/Globulin Ratio 0.8 L Lipase 41 Urine Color Urine Clarity Urine pH Ur Specific [place] Urine Protein Urine Glucose (UA) Urine Ketones Urine Occult Blood Urine Nitrite Urine Bilirubin Urine Urobilinogen Ur Leukocyte Esterase Urine RBC Urine WBC Urine WBC Clumps Ur Squamous Epith Cells Urine Bacteria Ur Microscopic Review Urine Culture Comments PD MEDICAL DECISION MAKING - ED course Complexity details: reviewed results, re-evaluated patient, considered differential, d/w patient, d/w family ED course: Patient is an 87-year-old male with a urostomy bag that has turbid urine in it today. Was given Rocephin IV here as well as IV fluids. Feels better. Does not appear to be uroseptic at this time. Will place on oral antibiotics for home and follow-up closely with his doctor. He is well-appearing, nontoxic. Afebrile. Patient and family counseled regarding signs and symptoms for which I believe and urgent re-evaluation would be necessary. Patient with good understanding of and agreement to plan and is comfortable going home at this time This document was made in part using voice recognition software. While efforts are made to proofread this document, sound alike and grammatical errors may occur. - Sepsis Event Vital Signs: Vital Signs - 24 hr 01/08/18 01/08/18 01/08/18 17:53 19:18 19:21 Temperature 37.1 C 36.8 C Heart Rate 66 64 Respiratory 16 18 Rate Blood Pressure 135/62 H 128/70 O2 Saturation 94 93 Oxygen O2 Source Room air Departure - Departure Disposition: 01 Home, Self Care Clinical Impression: UTI (urinary tract infection) Qualifiers: Urinary tract infection type: site unspecified Hematuria presence: without hematuria Qualified Code(s): N39.0 - Urinary tract infection, site not specified Condition: Good Instructions: ED UTI Cystitis Male Follow-Up: Thomas Echevarria MD [Primary Care Provider] - Within 3 Days Prescriptions: Cefpodoxime Proxetil 200 mg PO BID #20 tablet Comments: Take all antibiotics until gone. Return if Christian worsens. Discharge Date/Time: 01/08/18 19:22
[2018-01-08 18:37] LABS: BASOPHILS % (AUTO) 0.4 %; EOSINOPHILS # (AUTO) 0.4 10^3/uL (0.0-0.7); EOSINOPHILS % (AUTO) 3.9 %; HGB - HEMOGLOBIN 10.1 g/dL (14.0-18.0); LYMPHOCYTES # (AUTO) 0.7 10^3/uL (1.5-3.5); LYMPHOCYTES % (AUTO) 6.4 %; MEAN CORPUSCULAR HEMOGLOBIN 28.3 pg (27.0-31.0); MEAN CORPUSCULAR VOLUME 88.5 fL (80.0-94.0); MEAN PLATELET VOLUME 7.2 fL (7.4-11.4); MONOCYTES # (AUTO) 1.2 10^3/uL (0.0-1.0); MONOCYTES % (AUTO) 11.9 %; NEUTROPHILS # (AUTO) 7.9 10^3/uL (1.5-6.6); NEUTROPHILS % (AUTO) 77.4 %; PLT - PLATELET COUNT 189 10^3/uL (130-450); RED BLOOD COUNT 3.55 10^6/uL (4.70-6.10); RED CELL DISTRIBUTION WIDTH 17.2 % (12.0-15.0); WHITE BLOOD COUNT 10.2 x10^3/uL (4.8-10.8)
[2018-01-08 18:41] LABS: INR 3.2 (0.8-1.2); PT - PROTHROMBIN TIME 34.8 secs (9.9-12.6)
[2018-01-08 18:44] LABS: BILIRUBIN,URINE NEGATIVE (NEGATIVE); GLUCOSE, URINE (UA) NEGATIVE (NEGATIVE); KETONES,URINE (UA) NEGATIVE (NEGATIVE); LEUKOCYTE ESTERASE, URINE LARGE (NEGATIVE); NITRITE,URINE NEGATIVE (NEGATIVE); OCCULT BLOOD,URINE LARGE (NEGATIVE); PH,URINE 5.5 PH (5.0-7.5); PROTEIN,URINE >=300 mg/dL (NEGATIVE); UROBILINOGEN,URINE 0.2 (NORMAL) E.U./dL (NORMAL)
[2018-01-08 18:44] LABS: ALBUMIN 3.5 g/dL (3.2-5.5); ALBUMIN/GLOBULIN RATIO 0.8 (1.0-2.2); ALKALINE PHOSPHATASE 54 IU/L (42-121); ALT ALANINE AMINOTRANSFERASE < 10 IU/L (10-60); AST ASPARTATE AMINOTRANSFERASE 16 IU/L (10-42); BILIRUBIN,TOTAL 0.5 mg/dL (0.2-1.0); BUN - BLOOD UREA NITROGEN 48 mg/dL (6-20); CALCIUM 8.8 mg/dL (8.5-10.3); CARBON DIOXIDE - CO2 20 mmol/L (21-32); CHLORIDE 109 mmol/L (101-111); GFR - MDRD 32 (>89); GLUCOSE 123 mg/dL (70-100); LIPASE 41 U/L (22-51); SODIUM 136 mmol/L (135-145); TOTAL PROTEIN 7.7 g/dL (6.7-8.2)
[2018-01-08 18:54] LABS: BACTERIA,URINE Rare /HPF (None Seen); CLARITY,URINE TURBID (CLEAR); SQUAMOUS EPITHELIAL CELL,UR NONE SEEN (<= Few); WBC CLUMPS,URINE PRESENT
[2018-01-08 19:18] VITALS: BP 128/70
== END 2018-01-08 19:22 | disposition home or self-care (01) ==
LOC: ED 17:49
DX: N39.0 Urinary tract infection, site not specified (principal); Z96.0 Presence of urogenital implants; I25.10 Atherosclerotic heart disease of native coronary artery without angina pectoris; Z95.1 Presence of aortocoronary bypass graft; Z79.01 Long term (current) use of anticoagulants; Z95.2 Presence of prosthetic heart valve
CPT/HCPCS: 36415; 80053; 81001; 81003; 83605; 83690; 85025; 85610; 87077; 87086; 87181; 96361; 96374; 99283

== ENCOUNTER 2018-03-21 14:41 | Inpatient (IN) | payer MEDICARE, OTHER ==
--- NOTE | 2018-03-21 15:32 | XRAY Report ---
Reason: low O2 sat Procedure Date: 03/21/2018 Accession Number: [id number] / [id number] Procedure: XR - Chest 2 View X-Ray CPT Code: 09676 FULL RESULT: EXAM: CHEST RADIOGRAPHY EXAM DATE: 03/21/2018 03:19 PM. CLINICAL HISTORY: Low oxygen saturation. COMPARISON: Chest 2 view 09/27/2017. TECHNIQUE: 2 views. FINDINGS: Lungs/Pleura: Lung volumes are decreased compared to the prior study with small bilateral pleural effusions, similar in size to prior. There are increasing interstitial markings centrally in keeping with central pulmonary congestion without overt pulmonary edema. There is no lobar consolidation. There is no pneumothorax. Mediastinum: The cardiac silhouette is stable with persistent calcific atherosclerosis of the aorta. Other: Stable sternotomy changes with valve repair. Stable appearance of pacemaker. IMPRESSION: Interval decrease in lung volumes with increasing central vascular congestion. RADIA
[2018-03-21 15:56] LABS: BASOPHILS % (AUTO) 0.5 %; EOSINOPHILS # (AUTO) 0.2 10^3/uL (0.0-0.7); EOSINOPHILS % (AUTO) 4.1 %; HGB - HEMOGLOBIN 11.2 g/dL (14.0-18.0); LYMPHOCYTES # (AUTO) 0.5 10^3/uL (1.5-3.5); LYMPHOCYTES % (AUTO) 10.4 %; MEAN CORPUSCULAR HEMOGLOBIN 29.4 pg (27.0-31.0); MEAN CORPUSCULAR HGB CONC 32.4 g/dL (32.0-36.0); MEAN PLATELET VOLUME 8.9 fL (7.4-11.4); MONOCYTES # (AUTO) 0.5 10^3/uL (0.0-1.0); MONOCYTES % (AUTO) 9.3 %; NEUTROPHILS # (AUTO) 3.7 10^3/uL (1.5-6.6); NEUTROPHILS % (AUTO) 75.7 %; PLT - PLATELET COUNT 88 10^3/uL (130-450); RED BLOOD COUNT 3.82 10^6/uL (4.70-6.10); RED CELL DISTRIBUTION WIDTH 16.4 % (12.0-15.0); WHITE BLOOD COUNT 4.9 x10^3/uL (4.8-10.8)
[2018-03-21 16:07] LABS: ALBUMIN 3.7 g/dL (3.2-5.5); ALBUMIN/GLOBULIN RATIO 1.1 (1.0-2.2); BILIRUBIN,TOTAL 0.7 mg/dL (0.2-1.0); CALCIUM 8.9 mg/dL (8.5-10.3); CREATININE 1.8 mg/dL (0.6-1.2)
--- NOTE | 2018-03-21 16:08 | ED Physician Documentation ---
PD HPI DYSPNEA - Stated complaint Stated Complaint: SOA/ - Chief complaint Chief Complaint: General - History obtained from History obtained from: Patient - History of Present Illness Timing - onset: Yesterday (He has had increased general weakness and dyspnea with exertion for the last day or 2. He has not had any cough per se. He does have history of interstitial fibrosis and typically runs oxygenation level approximately 95% at rest and goes down to 88-90% with activity. He was noted to have a resting oxygenation of 90% and down to 78-82% with walking at home today. He denies any fever or chills. He has chronic mild cough. He has not had any sputum production. He does not normally have any home oxygenation nor use of inhalers or nebulizers as the are not effective on his fibrosis. There is no history of congestive heart failure though he does have heart disease with prior valve replacements pacemaker and bypass surgery. He has chronic mild pedal edema which has not increased lately.) Timing - onset during: Light activity Timing - duration: Days Associated symptoms: No: Fever, Cough, Hemoptysis Similar symptoms before: Work up / diagnostics, Follow up Review of Systems Constitutional: reports: Myalgias. denies: Fever, Chills Eyes: denies: Loss of vision, Decreased vision Ears: denies: Ear pain Nose: denies: Rhinorrhea / runny nose, Congestion, Foreign Body Throat: denies: Oral lesions / sores, Sore throat Cardiac: denies: Chest pain / pressure, Palpitations Respiratory: reports: Dyspnea, Cough, Wheezing GI: reports: Abdominal Swelling, Nausea. denies: Abdominal Pain : denies: Frequency Musculoskeletal: reports: Extremity swelling. denies: Neck pain, Extremity pain Immunocompromised: reports: Immunocompromised PD PAST MEDICAL HISTORY - Past Medical History Cardiovascular: Coronary artery disease, Valve disorder Respiratory: Shortness of breath Endocrine/Autoimmune: None GI: None : Other HEENT: None Psych: None Musculoskeletal: None Derm: None - Past Surgical History Past Surgical History: Yes Cardiovascular: CABG, Valve replacement - Present Medications Home Medications: Ambulatory Orders Medication Instructions Recorded Confirmed Warfarin Sodium [Coumadin] 1 tab PO DAILY 10/23/17 10/23/17 Carvedilol [Coreg] 25 mg PO BID 01/08/18 01/08/18 Cefpodoxime Proxetil 200 mg PO BID #20 tablet 01/08/18 Lisinopril 20 mg BID 01/08/18 01/08/18 amLODIPine [Norvasc] 10 mg QDAC 01/08/18 01/08/18 - Allergies Allergies/Adverse Reactions: Allergies Allergy/AdvReac Type Severity Reaction Status Date / Time No Known Drug Allergies Allergy Verified 10/23/17 11:37 - Social History Does the pt smoke?: No Smoking Status: Never smoker Does the pt drink ETOH?: No Does the pt have substance abuse?: No - Immunizations Immunizations are current?: Yes - POLST Patient has POLST: No PD ED PE NORMAL - Vitals Vital signs reviewed: Yes - General General: Alert and oriented X 3, Well developed/nourished, Other (mild work of breathing while resting. ) - HEENT HEENT: Pharynx benign - Neck Neck: Supple, no meningeal sign, No adenopathy, No JVD - Cardiac Cardiac: RRR, Other (valvular murmur heard.) - Respiratory Respiratory: No: Clear bilaterally (diffuse cellophane crackles c/w fibrosis. Mild exp wheezing central. No wet sounds. ) - Abdomen Abdomen: Soft, Non tender - Male Male : Deferred - Rectal Rectal: Deferred - Back Back: No CVA TTP - Derm Derm: Normal color, Warm and dry - Extremities Extremities: Normal ROM s pain, No calf tenderness / cord, Other (1+ edema in both legs. ) - Neuro Neuro: Alert and oriented X 3, No motor deficit, Normal speech - Psych Psych: Normal mood, Normal affect Results - Vitals Vitals: Vital Signs - 24 hr 03/21/18 03/21/18 03/21/18 15:00 16:40 16:48 Temperature 35.7 C L Heart Rate 60 60 60 Respiratory 18 20 12 Rate Blood Pressure 105/54 L 112/52 L O2 Saturation 91 L 98 03/21/18 17:31 Temperature Heart Rate 60 Respiratory 15 Rate Blood Pressure O2 Saturation Oxygen O2 Source Nasal cannula - Labs Labs: Laboratory Tests 03/21/18 03/21/18 03/21/18 14:00 15:45 15:45 WBC 4.9 RBC 3.82 L Hgb 11.2 L Hct 34.8 L MCV 91.0 MCH 29.4 MCHC 32.4 RDW 16.4 H Plt Count 88 L MPV 8.9 Neut # (Auto) 3.7 Lymph # (Auto) 0.5 L [place] # (Auto) 0.5 Eos # (Auto) 0.2 Baso # (Auto) 0.0 Absolute Nucleated RBC 0.00 Nucleated RBC % 0.0 PT 38.7 H INR 3.6 H Sodium 142 Potassium 6.3 H* Chloride 115 H Carbon Dioxide 20 L Anion Gap 7.0 BUN 51 H Creatinine 1.8 H Estimated GFR (MDRD) 36 L Glucose 86 Calcium 8.9 Total Bilirubin 0.7 AST 27 ALT 26 Alkaline Phosphatase 57 Troponin I B-Natriuretic Peptide Total Protein 7.0 Albumin 3.7 Globulin 3.3 Albumin/Globulin Ratio 1.1 Lipase 49 03/21/18 03/21/18 03/21/18 15:45 15:45 16:45 WBC RBC Hgb Hct MCV MCH MCHC RDW Plt Count MPV Neut # (Auto) Lymph # (Auto) [place] # (Auto) Eos # (Auto) Baso # (Auto) Absolute Nucleated RBC Nucleated RBC % PT INR Sodium Potassium 6.5 H* Chloride Carbon Dioxide Anion Gap BUN Creatinine Estimated GFR (MDRD) Glucose Calcium Total Bilirubin AST ALT Alkaline Phosphatase Troponin I < 0.04 B-Natriuretic Peptide 299 H Total Protein Albumin Globulin Albumin/Globulin Ratio Lipase - Rads (name of study) chest xray Radiology: Prelim report reviewed (interstitial changes c/w fibrosis. No effusions. No obvious infiltrates. Some central congestion without pulmonary edema.), EMP read contemporaneously PD MEDICAL DECISION MAKING - ED course Complexity details: reviewed results, re-evaluated patient, considered differential, d/w patient, d/w family - Sepsis Event Vital Signs: Vital Signs - 24 hr 03/21/18 03/21/18 03/21/18 15:00 16:40 16:48 Temperature 35.7 C L Heart Rate 60 60 60 Respiratory 18 20 12 Rate Blood Pressure 105/54 L 112/52 L O2 Saturation 91 L 98 03/21/18 17:31 Temperature Heart Rate 60 Respiratory 15 Rate Blood Pressure O2 Saturation Oxygen O2 Source Nasal cannula Departure - Departure Disposition: [facility] DC/Xfer Clinical Impression: Pulmonary fibrosis, Acute hyperkalemia, Muscle weakness, Anticoagulant long- term use Dyspnea Qualifiers: Dyspnea type: shortness of breath Qualified Code(s): R06.02 - Shortness of breath Chronic renal insufficiency Qualifiers: Chronic kidney disease stage: unspecified stage Qualified Code(s): N18.9 - Chronic kidney disease, unspecified Condition: Stable Record reviewed to determine appropriate education?: Yes Discharge Date/Time: 03/21/18 18:44
[2018-03-21] MEDS ORDERED: IPRATROPIUM/ALBUTEROL 3 ML NEB INH STA (16:29)
[2018-03-21] MEDS ORDERED: DEXAMETHASONE 10 MG/ML VIAL IVP STA (16:29)
[2018-03-21] MEDS ORDERED: SODIUM CHLORIDE 0.9% 500 ML IV ONE (16:29)
[2018-03-21] MEDS ORDERED: DEXTROSE 50% ABBOJECT 25 GM/50 ML SYRINGE IVP STA (17:11)
[2018-03-21] MEDS ORDERED: SODIUM BICARBONATE ABBOJECT 50 MEQ/50 ML SYRINGE IVP STA (17:11)
[2018-03-21] MEDS ORDERED: INSULIN REGULAR HUMAN 100 UNIT/1 ML 10 ML MDV IVP STA (17:11)
[2018-03-21] MEDS ORDERED: SODIUM POLYSTYRENE SULFONATE 15 GM/60 ML BOTTLE PO STA (17:13)
[2018-03-21] MEDS ORDERED: SODIUM CHLORIDE 0.9% 1,000 ML IV ONE (17:13)
[2018-03-21] MEDS ORDERED: ALBUTEROL NEB 2.5 MG/3 ML INH STA (17:14)
[2018-03-21 17:45] LABS: INR 3.6 (0.8-1.2); PT - PROTHROMBIN TIME 38.7 secs (9.9-12.6)
[2018-03-21] MEDS ORDERED: ONDANSETRON 4 MG/2 ML VIAL IVP PRN (18:01)
[2018-03-21] MEDS ORDERED: ZOLPIDEM 5 MG TABLET PO PRN (18:01)
[2018-03-21] MEDS ORDERED: ACETAMINOPHEN 325 MG TABLET PO PRN (18:01)
[2018-03-21] MEDS ORDERED: PROCHLORPERAZINE 10 MG/2 ML VIAL IVP PRN (18:01)
[2018-03-21] MEDS ORDERED: PROMETHAZINE 25 MG/1 ML VIAL IM PRN (18:01)
[2018-03-21] MEDS ORDERED: oxyCODONE 5 MG TABLET PO PRN (18:01)
--- NOTE | 2018-03-21 18:13 | HISTORY & PHYSICAL EXAMINATION ---
Chief Complaint - Chief Complaint Chief Complaint: Shortness of breath History of Present Illness - Admitted From Admitted From:: Emergency Department - History Obtained From Records Reviewed: Yes History obtained from: Patient Exam Limitations: None - History of Present Illness HPI Comment/Other: Patient is an 88-year-old gentleman with a very unfortunate past medical history of a recent hemorrhagic stroke in October 2017 requiring hospitalization at [facility] and subsequent 7-week stay at rehab at [facility]. According to the patient's family the patient has had significant decline in his cognitive status. 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 Much of the history is provided by the patient's daughter who is a nurse and his as the patient does have cognitive decline and cannot provide a very detailed history. The patient's daughter states that over the last 2 days the patient has had increasing generalized weakness and shortness of breath. Because of his shortness of breath the patient has been less and less active over the last few days. The patient has been receiving home physical therapy and they have noted that he has been able to do less and less. He is also had a decreased appetite over the last week and has just been less interactive. Today when physical therapy was seeing the patient they found that his oxygen saturation dropped down to 78% with exertion. They also found his blood pressure to be low. Due to these findings they recommended the patient be brought to the hospital. The patient's daughter states that she contemplated whether she should bring the patient into the hospital as she was not sure what could be done however in the and she did decide to bring him to the ER. The patient has not had any cough, fever, chills, abdominal pain, nausea, vomiting, diarrhea or constipation. Patient denies any headache, blurred vision, runny nose, sore throat, nasal congestion, difficulty swallowing, chest pain, orthopnea, PND, no urinary urgency or frequency, dysuria, joint swelling, joint pain, back pain, neck stiffness, hair loss, skin rash, night sweats or any focal neurologic deficits. On presentation to the emergency department the patient was afebrile and mildly hypotensive with blood pressure of 105/54. He did not appear to be in respiratory distress but was hypoxic requiring 2-1/2 L of oxygen. The patient underwent routine lab work which did reveal a hyperkalemia with a potassium of 6.3. The patient's BUN was elevated at 51 which is chronic for him and his creatinine was 1.8 which is near his baseline. The patient's BNP was elevated to 99 and his troponin was less than 0.04. Patient underwent a chest x-ray which revealed decreased lung volumes with increasing central vascular congestion. A urine analysis was not performed in the emergency department. The patient's INR was 3.6. The patient had no leukocytosis. The patient did have a slight thrombocytopenia with a platelet count of 88. The patient was admitted to the medical [facility] for hypoxia and hyperkalemia. History - Past Medical History Cardiovascular: reports: Hypertension, Coronary artery disease (CABG), Valve disorder (Mitral and aortic valve replacement), Other (Bradycardia with PM) Respiratory: reports: Shortness of breath, Other (Pulmonary Fibrosis) Neuro: reports: Dementia, CVA Endocrine/Autoimmune: reports: None GI: reports: None : reports: Other (Prostate Cancer s/p radiation) HEENT: reports: None Psych: reports: None Musculoskeletal: reports: None Derm: reports: None MRSA Hx?: No - Past Surgical History Cardiovascular: reports: CABG, Valve replacement, Pacemaker - Family & Social History Family History: Mother: (Mom in MVA, dad of suicide), Cancer (Pancreatic Ca), Father: , Cancer, Mental Illness Living arrangement: At home Living Situation: With family Social History Notes: Patient lives with his and daughter on [address]. He has 4 children. He is originally from [place]. He has been to his for over 60 years and they moved here in the . The patient served in the [employer] for over 20 years. He was previously a smoker and quit in the 1980s. He never was a heavy smoker. He occasionally drinks alcohol and denies any illicit drug use. - POLST Patient has POLST: No POLST Status: DNR Meds/Allgy - Home Medications Home Medications: Ambulatory Orders Medication Instructions Recorded Confirmed Warfarin Sodium [Coumadin] 1 tab PO DAILY 10/23/17 10/23/17 Carvedilol [Coreg] 25 mg PO BID 01/08/18 01/08/18 Cefpodoxime Proxetil 200 mg PO BID #20 tablet 01/08/18 Lisinopril 20 mg BID 01/08/18 01/08/18 amLODIPine [Norvasc] 10 mg QDAC 01/08/18 01/08/18 - Allergies Allergies/Adverse Reactions: Allergies Allergy/AdvReac Type Severity Reaction Status Date / Time No Known Drug Allergies Allergy Verified 10/23/17 11:37 Review of Systems - Other Findings Other Findings: A comprehensive review of systems was performed the pertinent positives and negatives are stated above in the HPI and the remainder of the review of systems is negative. Exam - Vital Signs Reviewed Vital Signs: Yes Vital Signs: Vital Signs x48h Temp Pulse Resp BP Pulse Ox 03/21/18 18:08 36.2 C L 60 15 126/66 97 03/21/18 17:31 60 15 03/21/18 16:48 60 12 112/52 L 98 03/21/18 16:40 60 20 03/21/18 15:00 35.7 C L 60 18 105/54 L 91 L - Physical Exam General Appearance: positive: No acute distress, Alert, Other (cachectic appearing) Eyes Bilateral: positive: Normal inspection, PERRL, EOMI, No lid inflammation, Conjunctivae nml, No scleral icterus ENT: positive: ENT inspection nml, Pharynx nml, No signs of dehydration. negative: Purulent nasal drainage, Pharyngeal erythema, Oral lesions Neck: positive: Nml inspection, Thyroid nml, No JVD, Trachea midline. negative : Lymphadenopathy (R), Lymphadenopathy (L), Carotid bruit, Tracheal deviation Respiratory: positive: Chest non-tender, No respiratory distress, Wheezes ( Expiratory), Rales (Bases) Cardiovascular: positive: Regular rate & rhythm, Other (Mechanical valve sound) Peripheral Pulses: positive: 2+ Abdomen: positive: Non-tender, No organomegaly, Nml bowel sounds, No distention. negative: Guarding, Rebound, Hepatomegaly Back: positive: Nml inspection. negative: CVA tenderness (R), CVA tenderness (L ) Skin: positive: Color nml, No rash, Warm, Dry, Skin rash (Multiple petichae) Extremities: positive: Non-tender, Full ROM, Pedal edema (Bilateal edema) Neurologic/Psychiatric: positive: Oriented x3, CN's nml (2-12), Motor nml, Sensation nml, Mood/affect nml, Disoriented to person, Disoriented to place, Weakness (Generalized) Conclusion/Plan - Problem List (1) Acute respiratory failure with hypoxia Conclusion/Plan: Patient presented to the emergency department after he had hypoxia at home with exertion down to 78% on room air. Patient's hypoxia is likely combination of pulmonary fibrosis and possibly some fluid overload. Although the patient does not appear to be significantly overloaded on examination he does have crackles on exam and has pulmonary vascular congestion on chest x-ray. His BNP is also slightly elevated at 299. The patient does not have a recent echocardiogram in our system. It is possible that he has worsening valvular disorder or has developed some congestive heart failure. The patient does not appear to have any pneumonia and it is unlikely that his pulmonary fibrosis is progressing causing his hypoxia. Given that he was not hypoxic just a few days earlier. Likely his generalized weakness is also due to his hypoxia. Plan: IV Lasix 40 mg twice daily Echocardiogram Telemetry monitoring Monitor I's and O's Supplemental oxygen Palliative care consult (2) Hyperkalemia Conclusion/Plan: K is 6.5 Likely secondary to lisinopril Patient does not have ZORAN He is not on potassium Give Calcium gluconate 2 grams Patient received Albuterol and kayexylate in the ER Give lasix Monitor K (3) Hypertension Conclusion/Plan: BP is low normal Will stop lisinopril Continue coreg and norvasc Monitor BP Qualifiers: Hypertension type: essential hypertension Qualified Code(s): I10 - Essential (primary) hypertension (4) Pulmonary fibrosis Conclusion/Plan: Chronic Patient likely needs home O2 Will give supplemental O2 for now Get O2 walk test prior to discharge Palliative care consult PT consult (5) S/P aortic valve and mitral valve replacement Conclusion/Plan: On coumadin with goal INR of 2.5 to 3.5 INR is slightly elevated at 3.6 Will hold coumadin tonight Echo tomorrow Tele - Lab Results Lab results reviewed: Yes Fish Bones: 03/21/18 15:45 03/21/18 16:45 Other Lab Results: Laboratory Results WBC 4.9 x10^3/uL (4.8-10.8) 03/21/18 15:45 RBC 3.82 10^6/uL (4.70-6.10) L 03/21/18 15:45 Hgb 11.2 g/dL (14.0-18.0) L 03/21/18 15:45 Hct 34.8 % (42.0-52.0) L 03/21/18 15:45 MCV 91.0 fL (80.0-94.0) 03/21/18 15:45 MCH 29.4 pg (27.0-31.0) 03/21/18 15:45 MCHC 32.4 g/dL (32.0-36.0) 03/21/18 15:45 RDW 16.4 % (12.0-15.0) H 03/21/18 15:45 Plt Count 88 10^3/uL (130-450) L 03/21/18 15:45 MPV 8.9 fL (7.4-11.4) 03/21/18 15:45 Neut # (Auto) 3.7 10^3/uL (1.5-6.6) 03/21/18 15:45 Lymph # (Auto) 0.5 10^3/uL (1.5-3.5) L 03/21/18 15:45 [place] # (Auto) 0.5 10^3/uL (0.0-1.0) 03/21/18 15:45 Eos # (Auto) 0.2 10^3/uL (0.0-0.7) 03/21/18 15:45 Baso # (Auto) 0.0 10^3/uL (0.0-0.1) 03/21/18 15:45 Absolute Nucleated RBC 0.00 x10^3/uL 03/21/18 15:45 Nucleated RBC % 0.0 /100WBC 03/21/18 15:45 PT 38.7 secs (9.9-12.6) H 03/21/18 14:00 INR 3.6 (0.8-1.2) H 03/21/18 14:00 Sodium 142 mmol/L (135-145) 03/21/18 15:45 Potassium 6.5 mmol/L (3.5-5.0) H* 03/21/18 16:45 Chloride 115 mmol/L (101-111) H 03/21/18 15:45 Carbon Dioxide 20 mmol/L (21-32) L 03/21/18 15:45 Anion Gap 7.0 (6-13) 03/21/18 15:45 BUN 51 mg/dL (6-20) H 03/21/18 15:45 Creatinine 1.8 mg/dL (0.6-1.2) H 03/21/18 15:45 Estimated GFR (MDRD) 36 (>89) L 03/21/18 15:45 Glucose 86 mg/dL (70-100) 03/21/18 15:45 Calcium 8.9 mg/dL (8.5-10.3) 03/21/18 15:45 Total Bilirubin 0.7 mg/dL (0.2-1.0) 03/21/18 15:45 AST 27 IU/L (10-42) 03/21/18 15:45 ALT 26 IU/L (10-60) 03/21/18 15:45 Alkaline Phosphatase 57 IU/L (42-121) 03/21/18 15:45 Troponin I < 0.04 ng/mL (<0.49) 03/21/18 15:45 B-Natriuretic Peptide 299 pg/mL (5-100) H 03/21/18 15:45 Total Protein 7.0 g/dL (6.7-8.2) 03/21/18 15:45 Albumin 3.7 g/dL (3.2-5.5) 03/21/18 15:45 Globulin 3.3 g/dL (2.1-4.2) 03/21/18 15:45 Albumin/Globulin Ratio 1.1 (1.0-2.2) 03/21/18 15:45 Lipase 49 U/L (22-51) 03/21/18 15:45 - Diagnostic Imaging Results Diagnostic Imaging Results: positive: Final report reviewed Diagnostic Imaging Results Comments: Chest x-ray Impression: 1. Interval decrease in lung volumes with increasing central vascular congestion. - EKG Results EKG Interpreted Independently: Yes Core Measures - Anticipated LOS I expect patient to be DC'd or transferred within 96 hours.: Yes - DVT/VTE - Prophylaxis VTE/DVT Device ordered at admit?: Yes
[2018-03-21] MEDS ORDERED: IPRATROPIUM/ALBUTEROL 3 ML NEB INH PRN (18:47)
[2018-03-21] MEDS ORDERED: CALCIUM GLUCONATE 2,000 MG in SODIUM CHLORIDE 0.9% 100ML 100 ML IV ONE (18:47)
[2018-03-21] MEDS: SODIUM CHLORIDE FLUSH 0.9% 10 ML SYRINGE IVP PRN ×2 (20:11→21:08)
[2018-03-21] MEDS ORDERED: MIN OIL/DIMETHICON/COCONUT OIL 92 GM TUBE TOP PRN (21:07)
[2018-03-21] MEDS: FUROSEMIDE 40 MG/4 ML VIAL IVP SCH (21:08)
[2018-03-21] MEDS: CARVEDILOL 12.5 MG TABLET PO SCH (21:08)
[2018-03-22] MEDS: SODIUM CHLORIDE FLUSH 0.9% 10 ML SYRINGE IVP SCH ×3 (00:38→20:26)
[2018-03-22 05:42] LABS: BASOPHILS % (AUTO) 0.1 %; EOSINOPHILS % (AUTO) 0.1 %; HGB - HEMOGLOBIN 10.6 g/dL (14.0-18.0); LYMPHOCYTES # (AUTO) 0.3 10^3/uL (1.5-3.5); LYMPHOCYTES % (AUTO) 9.6 %; MEAN CORPUSCULAR HEMOGLOBIN 29.7 pg (27.0-31.0); MEAN CORPUSCULAR HGB CONC 32.8 g/dL (32.0-36.0); MEAN CORPUSCULAR VOLUME 90.5 fL (80.0-94.0); MEAN PLATELET VOLUME 8.3 fL (7.4-11.4); MONOCYTES % (AUTO) 0.9 %; NEUTROPHILS # (AUTO) 2.4 10^3/uL (1.5-6.6); NEUTROPHILS % (AUTO) 89.3 %; PLT - PLATELET COUNT 76 10^3/uL (130-450); RED BLOOD COUNT 3.58 10^6/uL (4.70-6.10); RED CELL DISTRIBUTION WIDTH 16.1 % (12.0-15.0); WHITE BLOOD COUNT 2.6 x10^3/uL (4.8-10.8)
[2018-03-22 05:47] LABS: INR 3.4 (0.8-1.2); PT - PROTHROMBIN TIME 36.7 secs (9.9-12.6)
[2018-03-22 05:58] LABS: ALBUMIN 3.7 g/dL (3.2-5.5); ALBUMIN/GLOBULIN RATIO 1.2 (1.0-2.2); BILIRUBIN,TOTAL 0.8 mg/dL (0.2-1.0); CALCIUM 8.8 mg/dL (8.5-10.3); CREATININE 1.8 mg/dL (0.6-1.2); MAGNESIUM 2.2 mg/dL (1.7-2.8); TOTAL PROTEIN 6.7 g/dL (6.7-8.2)
[2018-03-22] MEDS: amLODIPine 5 MG TABLET PO SCH (06:07)
[2018-03-22 06:10] LABS: PLATELET ESTIMATE, MANUAL DECREASED (<130,000) (NORMAL); PLATELET MORPHOLOGY NORMAL APPEARANCE (NORMAL); RBC MORPHOLOGY (MULTIPLE) NORMAL APPEARANCE (NORMAL)
[2018-03-22] MEDS: FUROSEMIDE 40 MG/4 ML VIAL IVP SCH ×2 (09:42→20:26)
[2018-03-22] MEDS: CARVEDILOL 12.5 MG TABLET PO SCH ×2 (09:43→20:26)
[2018-03-22] MEDS: FAMOTIDINE 20 MG TABLET PO SCH (09:43)
[2018-03-22] MEDS: POLYETHYLENE GLYCOL 3350 17 GM PACKET PO SCH (09:43)
--- NOTE | 2018-03-22 16:20 | CONSULTATION NOTE ---
Palliative Care Consultation - Referral Referring Provider: Dr. Kelly Time of Visit: 4111-5418 Referral setting: Hospitalized patient Referral Reason: Pulm Fibrosis/Fraility/Goals of Care - Information Sources Records reviewed: RN notes reviewed, Previous records reviewed History/Review of Systems obtained from: Patient, Family ( Hina and Daughter Karol at family visit; source of hisotyr) Exam limitations: Clinical condition (patient with moderate dementia as sequela of stroke; able to answer in the moment) - History of Present Illness Brief History of Present Illness: This is an 88-year-old gentleman who most recently presented with functional and cognitive decline. This was precipitated by a hemorrhagic stroke in October 2017, he was hospitalized at [facility] with subsequent stay at rehab [facility]. He has been receiving home health services at home, he has been making progress, has been able to ambulate without a walker in the home, using it for longer periods of ambulation. Patient is a result of the stroke has had some left-sided leaning, left field deficit, and significant change in his memory. This is been difficult as it has led to impulsivity, but both his daughter and acknowledge that he is actually more pleasant person after the stroke. Patient was having increased weakness, increased shortness of breath, was seen by the home health nurse and found to have oxygen desaturation to 78% with exertion. Also was hypotensive and she recommended they bring him to the hospital. He was found to have severe hypokalemia, acute respiratory failure with hypoxia, and now most likely will require home oxygen. Patient did receive the diagnosis of pulmonary fibrosis about October, his most likely as a result of exposure to asbestos. He has had increasing shortness of breath over the years, but this has accelerated over the last several months. Patient also has known history of prostate cancer status post radiation, he was having significant difficulty with urinary retention and incontinence, and as it intervention they did do a urostomy. This is actually been a good support to the patient. He has had intermittent urosepsis, had not had any for about 5 years, until he within the last few months. does manage all of the ostomy supplies and care. Patient can use to be able to manage independently as far as emptying. Patient also has significant past medical history for coronary artery disease with 5 vessel bypass, aortic and mitral valve replacements with mechanical valve currently on Coumadin, pacemaker secondary to bradycardia, and does present is fairly frail. Given the patient's frailty, and needing to define goals of care, palliative care referral was made. Of note has been independently managing, and has had support from her family, but has had difficulty asking for more help, and does present with symptoms of caregiver fatigue. 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 Support System: Patient lives at home with his , his daughter Karol Provides bathing assistance every Wednesday. does feel can continue to manage him as long as he can walk, and is mobile. There is some heightened concern given patient and the need home oxygen, this will make a much more complex. Patient does have impulsivity, they do have bed alarms, door alarms, as patient does forget to call for help. Family History - Family History Family History: Mother: , Father: Medications/Allergies - Medications Active Medication List: Active Medications Acetaminophen (Tylenol) 650 mg PO Q4HR PRN PRN Reason: Pain 1 to 4 Albuterol/Ipratropium (Duoneb) 3 ml INH Q4HR PRN PRN Reason: Wheezing Amlodipine Besylate (Norvasc) 10 mg PO QDAC [facility] Last Admin: 03/22/18 06:07 Dose: 10 mg Carvedilol (Coreg) 25 mg PO BID [facility] Last Admin: 03/22/18 09:43 Dose: 25 mg Famotidine (Pepcid) 20 mg PO DAILY [facility] Last Admin: 03/22/18 09:43 Dose: 20 mg Furosemide (Lasix Inj 40 Mg Vial) 40 mg IVP BID [facility] Last Admin: 03/22/18 09:42 Dose: 40 mg Mineral Oil (Cavilon) 1 applic TOP PRN PRN PRN Reason: Skin Care Ondansetron HCl (Zofran Inj) 4 mg IVP Q6HR PRN PRN Reason: Nausea / Vomiting Oxycodone HCl (Roxicodone) 5 mg PO Q4HR PRN PRN Reason: Pain 5 to 7 Polyethylene Glycol (Miralax) 17 gm PO DAILY [facility] Last Admin: 03/22/18 09:43 Dose: Not Given Prochlorperazine Edisylate (Compazine Inj) 10 mg IVP Q6HR PRN PRN Reason: Nausea / Vomiting Promethazine HCl (Phenergan Inj) 25 mg IM Q6HR PRN PRN Reason: Nausea / Vomiting Sodium Chloride (Normal Saline Flush 0.9%) 10 ml IVP PRN PRN PRN Reason: NEEDED PER PROVIDER ORDERS Last Admin: 03/21/18 21:08 Dose: 10 ml Sodium Chloride (Normal Saline Flush 0.9%) 10 ml IVP 0100,0900,1700 [facility] Last Admin: 03/22/18 09:43 Dose: 10 ml Zolpidem Tartrate (Ambien) 5 mg PO QPM PRN PRN Reason: Insomnia Warfarin Sodium [Coumadin] 1 tab PO DAILY 10/23/17 Carvedilol [Coreg] 25 mg PO BID 01/08/18 Lisinopril 20 mg PO BID 01/08/18 amLODIPine [Norvasc] 10 mg PO DAILY 01/08/18 - Allergies Allergies/Adverse Reactions: Allergies Allergy/AdvReac Type Severity Reaction Status Date / Time No Known Drug Allergies Allergy Verified 10/23/17 11:37 Review of Systems - Constitutional Constitutional: reports: Fatigue, Weight stable (very thin about 125-128) - Eyes Eyes: reports: Vision loss, Corrective lenses - Ears, Nose & Throat Ears, Nose & Throat: reports: Hearing loss, Dentures - Cardiovascular Cardiovascular: reports: Irregular heart rate, Exertional dyspnea, Decr. exercise tolerance. denies: Edema - Respiratory Respiratory: reports: Cough (intermittent), SOB at rest (fluctuating), SOB with exertion - Gastrointestinal Gastrointestinal: reports: Early satiety (using Ensure at home;). denies: Constipation, Reflux/heartburn - Genitourinary Genitourinary: reports: Other (has urostomy; bag with shreds/slightly cloudy dark yellow) - Musculoskeletal Musculoskeletal: reports: Back pain, Stiffness, Muscle weakness, Assistive devices (using walker) - Integumentary Integumentary: reports: Dryness - Neurological Neurological: reports: General weakness, Memory problems - Psychiatric Psychiatric: reports: Other (impulsitivy; denies distress/anxiety) - Endocrine Endocrine: reports: Intolerance to cold (patient feeling cold/chilled very thin ; warm blanket on with relief) - Hematologic/Lymphatic Hematologic/Lymphatic: reports: Anemia, Recurrent infections (patient with recurrent urosepsis; will follow up with hospitalist regarding urine) - All Other Systems All Other Systems: reports: Reviewed and negative - Other Findings Other Findings: inform provided by family Physical Exam - Vital Signs Vital Signs: Vital Signs x48h Temp Pulse Pulse Pulse Pulse Resp BP 03/22/18 16:00 36.1 C L 73 18 03/22/18 12:45 36.4 C L 85 19 03/22/18 10:05 90 86 107/50 L 03/22/18 10:00 64 16 BP BP Pulse Ox 03/22/18 16:00 104/42 L 99 03/22/18 12:45 103/46 L 96 03/22/18 10:05 118/46 L 03/22/18 10:00 - Physical Exam General Appearance: positive: No acute distress, Anxious Eyes Bilateral: positive: Normal inspection ENT: positive: No signs of dehydration Neck: positive: No JVD, Trachea midline Cardiovascular: positive: Irregularly irregular Respiratory: positive: Diminished throughout. negative: Wheezes, Rales, Rhonchi Abdomen: positive: Non-tender, Soft, Nml bowel sounds Skin: positive: Dryness, Bruising Extremities: positive: No pedal edema (feet cold to touch) Neurologic/Psychiatric: positive: Disoriented to place, Disoriented to time, Weakness, Slurred/abnml speech (mild) Palliative Care - POLST Patient has POLST: Yes POLST Status: DNR, Selective Treatment (completed at visit) Pain: No pain Tiredness/Fatigue: Moderate (4-6) (fluctuating energy levels; worsened over last few days) Drowsiness/Sedation: Moderate (4-6) (sleeps quite a bit at home;) Nausea: None Sleep: Variable sleep pattern (has bed alarm on at night to alert he is getting up; used to being up to empty urostomy) Constipation: No Performance Status: Patient at baseline actually is fairly ambulatory. 's focuses on keeping him functional, does walk him around the block when he is feeling better, though this can be limited by his breathlessness. They do use the walker. He does have ups and downs as far as days. He does need assistance with bathing which is daughter provides. He can eat independently. His provide support for all other ADLs and IADLs. - Palliative Care Discussion: Patient and have been over 60 years, they have 4 children. The daughter Karol Lives on the [place], she is a nurse that works at the [employer]. She has been main support as far as managing in overseeing his medical care. Their other daughter is a nurse as well, she lives in [place]. All the children have been taking shifts as far as trying to support them over this last few months. does reflect that it is a 24/7 job, is missing her volunteer experiences, and does appear to have caregiver fatigue. Family has been encouraging her to hire some help but has been met with resistance as far as spending the money. Both daughter and to recognize patient is quite fragile, their goals are to keep him as functional and at home for as long as possible. feels she would not be able to manage him if he was not able to walk, we did discuss in the context of this of whether they would hire help or look at placement. She would like to keep him at home if possible. They do have spelled out advanced directives, they do not have a GABRIELLE ST. We did discuss in the context of his fragile health status, but this would be helpful if they are calling 911 to be able to interpret their wishes into something the paramedics could follow.It does sound if he needs oxygen this may be more complicated. They will resume with eating home health they are already seen PT and the nurse. We did discuss about possible SNF if needed further strengthening, Both felt that patient at [facility] had more difficulty because of his dementia, plus they had to be there constantly. Feel like having him home with home PT would be the best route. Did acknowledge may need to hire some help if he is more fragile and more dependent. Counseling done regarding hiring help from "the list" and agencies. Results - Lab Results Lab results reviewed: Yes Fish Bones: 03/22/18 05:33 03/22/18 05:33 Lab and Imaging Results: Lab Results x24hrs 03/22/18 03/22/18 03/22/18 Range/Units 05:33 05:33 05:33 WBC (4.8-10.8) x10^3/uL RBC (4.70-6.10) 10^6/uL Hgb (14.0-18.0) g/dL Hct (42.0-52.0) % MCV (80.0-94.0) fL MCH (27.0-31.0) pg MCHC (32.0-36.0) g/dL RDW (12.0-15.0) % Plt Count (130-450) 10^3/uL MPV (7.4-11.4) fL Neut # (Auto) (1.5-6.6) 10^3/uL Lymph # (Auto) (1.5-3.5) 10^3/uL Geary # (Auto) (0.0-1.0) 10^3/uL Eos # (Auto) (0.0-0.7) 10^3/uL Baso # (Auto) (0.0-0.1) 10^3/uL Absolute Nucleated RBC x10^3/uL Nucleated RBC % /100WBC Manual Slide Review Platelet Estimate (NORMAL) Platelet Morphology (NORMAL) RBC Morph Micro Appear (NORMAL) PT (9.9-12.6) secs INR (0.8-1.2) Sodium 145 (135-145) mmol/L Potassium 5.4 H (3.5-5.0) mmol/L Chloride 115 H (101-111) mmol/L Carbon Dioxide 23 (21-32) mmol/L Anion Gap 7.0 (6-13) BUN 51 H (6-20) mg/dL Creatinine 1.8 H (0.6-1.2) mg/dL Estimated GFR (MDRD) 36 L (>89) Glucose 180 H (70-100) mg/dL Calcium 8.8 (8.5-10.3) mg/dL Magnesium 2.2 (1.7-2.8) mg/dL Total Bilirubin 0.8 (0.2-1.0) mg/dL AST 36 (10-42) IU/L ALT 32 (10-60) IU/L Alkaline Phosphatase 55 (42-121) IU/L Troponin I < 0.04 (<0.49) ng/mL B-Natriuretic Peptide 484 H (5-100) pg/mL Total Protein 6.7 (6.7-8.2) g/dL Albumin 3.7 (3.2-5.5) g/dL Globulin 3.0 (2.1-4.2) g/dL Albumin/Globulin Ratio 1.2 (1.0-2.2) 03/22/18 03/22/18 03/21/18 Range/Units 05:33 05:33 22:51 WBC 2.6 L (4.8-10.8) x10^3/uL RBC 3.58 L (4.70-6.10) 10^6/uL Hgb 10.6 L (14.0-18.0) g/dL Hct 32.4 L (42.0-52.0) % MCV 90.5 (80.0-94.0) fL MCH 29.7 (27.0-31.0) pg MCHC 32.8 (32.0-36.0) g/dL RDW 16.1 H (12.0-15.0) % Plt Count 76 L (130-450) 10^3/uL MPV 8.3 (7.4-11.4) fL Neut # (Auto) 2.4 (1.5-6.6) 10^3/uL Lymph # (Auto) 0.3 L (1.5-3.5) 10^3/uL Geary # (Auto) 0.0 (0.0-1.0) 10^3/uL Eos # (Auto) 0.0 (0.0-0.7) 10^3/uL Baso # (Auto) 0.0 (0.0-0.1) 10^3/uL Absolute Nucleated RBC 0.00 x10^3/uL Nucleated RBC % 0.1 /100WBC Manual Slide Review Indicated Platelet Estimate DECREASED (<130,000) (NORMAL) Platelet Morphology NORMAL APPEARANCE (NORMAL) RBC Morph Micro Appear NORMAL APPEARANCE (NORMAL) PT 36.7 H (9.9-12.6) secs INR 3.4 H (0.8-1.2) Sodium (135-145) mmol/L Potassium (3.5-5.0) mmol/L Chloride (101-111) mmol/L Carbon Dioxide (21-32) mmol/L Anion Gap (6-13) BUN (6-20) mg/dL Creatinine (0.6-1.2) mg/dL Estimated GFR (MDRD) (>89) Glucose (70-100) mg/dL Calcium (8.5-10.3) mg/dL Magnesium (1.7-2.8) mg/dL Total Bilirubin (0.2-1.0) mg/dL AST (10-42) IU/L ALT (10-60) IU/L Alkaline Phosphatase (42-121) IU/L Troponin I < 0.04 (<0.49) ng/mL B-Natriuretic Peptide (5-100) pg/mL Total Protein (6.7-8.2) g/dL Albumin (3.2-5.5) g/dL Globulin (2.1-4.2) g/dL Albumin/Globulin Ratio (1.0-2.2) Impression and Recommendations - Palliative Care Impression: This is an 88-year-old gentleman who presents with advanced age and frailty, with increased complications as a result of his recent stroke and pulmonary fibrosis. He has had both functional and cognitive decline, has made some progress with therapies at home, concerned about management long-term. Palliative care to meet with family regarding defining goals of care and completing an advance directive in the form of the GABRIELLE [address] Recommendations/Counseling Done: 1. Pulmonary fibrosis. Patient does present with hypoxia, now with oxygen. Family does observe patient seems more "perky" with the oxygen, but are concerned about managing it with his impulsivity and increased care needs at home. 2. Generalized weakness. Both patient and daughter are hopeful they can maximize his rehab here in the hospital during his current stay. At this point in time would not like to send him to a SNF, but return home with home health PT /RN, currently open to [facility] health. Counseling provided regarding caregiver burnout and stress, encouraged increased assistance in the home, this has been met with much resistance up to this point. 3. Advanced care planning. Patient unable to really participate in goal setting, he does not appear in any kind of distress, does not really appear to understand what is going on our reason for hospitalization. has been managing his care at home, but does acknowledge increasing fatigue, and concerns if patient were to decline after he is made such progress. Both patient and have advanced directives, Kesha LEAL is the , but did not have a GABRIELLE ST. Discussion regarding goals which is to keep him as functional as possible, focus on quality of life, and keeping him at home as long as possible. This was completed as a DNA are/selective treatments without ventilation. Patient currently with recurrent urosepsis, would agree to treatment at this point in the trajectory. Discussed separately with daughter regarding end-of-life wishes, their hope would be to be able to manage him at home with hospice support and family caregiving. 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 Thank you Dr. Kelly for asking the Palliative Care consult service to meet with his family, and look at goals of care. GABRIELLE [address] is completed, patient is quite frail, is high risk for sequela of a fall, further infections, and ongoing functional/cognitive decline. Does have a very stable social support network, resources to be able to hire assistance, may benefit from palliative care in the future in the home setting. Time Spent: 90 minutes with getting 50% of this done in counseling regarding goals of care, anticipatory guidance, addressing caregiver fatigue and education on community resources
--- NOTE | 2018-03-22 18:34 | PROVIDER PROGRESS NOTE ---
Assessment/Plan - Problem List (1) Acute on chronic diastolic heart failure Assessment/Plan: Echo shows normal LVEF and pulmonary HTN, both prosthetic valves are functioning properly. Continue diuresis. Will evaluate for home O2 tomorrow, before possible DCh. (2) S/P aortic valve and mitral valve replacement Assessment/Plan: Normally functioning AVR and MVR. Will restart Coumadin at 1 mg daily tomorrow (which had been the plan from his doctor's office). Monitor daily INR while here. INR target is 2.5-3.5 with prosthetic valves. (3) Hyperkalemia Assessment/Plan: Improving K with stopping STERLING-I and giving Lasix. Will change Reg diet to a Renal diet with low K and low sodium (4) Chronic renal insufficiency Qualifiers: Chronic kidney disease stage: stage 3 (moderate) Qualified Code(s): N18.3 - Chronic kidney disease, stage 3 (moderate) Assessment/Plan: Stable but elevated BUN/creat. Continue to monitor daily BMP, especially while he needs diuresis (5) History of stroke Assessment/Plan: Continue Coumadin, monitoring INR. (6) History of urostomy Assessment/Plan: No U/A was done at admission. Will order U/A and culture if needed. - Current Meds Current Meds: Current Medications Generic Name Dose Route Start Last Admin Trade Name Freq PRN Reason Stop Dose Admin Amlodipine Besylate 10 mg 03/22/18 07:00 03/22/18 06:07 Norvasc PO 10 mg QDAC [facility] Administration Carvedilol 25 mg 03/21/18 21:00 03/22/18 09:43 Coreg PO 25 mg BID [facility] Administration Famotidine 20 mg 03/22/18 09:00 03/22/18 09:43 Pepcid PO 20 mg DAILY [facility] Administration Furosemide 40 mg 03/21/18 21:00 03/22/18 09:42 Lasix Inj 40 Mg Vial IVP 40 mg BID [facility] Administration Polyethylene Glycol 17 gm 03/22/18 09:00 03/22/18 09:43 Miralax PO Not Given DAILY [facility] Sodium Chloride 10 ml 03/21/18 18:01 03/21/18 21:08 Normal Saline Flush 0.9% IVP 10 ml PRN PRN Administration NEEDED PER PROVIDER ORDERS Sodium Chloride 10 ml 03/22/18 01:00 03/22/18 09:43 Normal Saline Flush 0.9% IVP 10 ml 0100,0900,1700 ED[facility]AR Administration - Lab Result Fish Bone Diagrams: 03/25/18 05:25 03/25/18 05:25 - Additional Planning My Orders: My Active Orders 03/22/18 Urinalysis w/ Micro, Reflex Cult If [UA w/ MICROSCOPIC, CULT IF] [URIN] Urgent 03/22/18 17:14 Miscellaenous Nursing Order [RC] QSHIFT 03/23/18 14:00 Warfarin [Coumadin] 1 mg PO QDWARFARIN 03/23/18 Breakfast Hepatic/Renal Diet [DIET] Subjective - Subjective Patient Reports: Feeling Better, Resting Comfortably Objective Vital Signs: Vital Signs - 24 hr 03/21/18 03/21/18 03/21/18 18:52 20:31 21:25 Temperature 35.3 C L 35.5 C L Heart Rate 69 Heart Rate [ Activity] Heart Rate [ 62 61 Brachial] Heart Rate [ Supine] Respiratory 20 16 20 Rate Blood Pressure [Activity] Blood Pressure 118/50 L 124/47 L [Right Brachial artery] Blood Pressure [Supine] O2 Saturation 98 96 03/22/18 03/22/18 03/22/18 00:00 06:00 08:00 Temperature 35.3 C L 36.7 C Heart Rate Heart Rate [ Activity] Heart Rate [ 60 99 85 Brachial] Heart Rate [ Supine] Respiratory 16 18 Rate Blood Pressure [Activity] Blood Pressure 116/41 L 123/60 117/57 L [Right Brachial artery] Blood Pressure [Supine] O2 Saturation 97 98 03/22/18 03/22/18 03/22/18 10:00 10:05 12:45 Temperature 36.4 C L Heart Rate 64 Heart Rate [ 90 Activity] Heart Rate [ 85 Brachial] Heart Rate [ 86 Supine] Respiratory 16 19 Rate Blood Pressure 107/50 L [Activity] Blood Pressure 103/46 L [Right Brachial artery] Blood Pressure 118/46 L [Supine] O2 Saturation 96 03/22/18 16:00 Temperature 36.1 C L Heart Rate Heart Rate [ Activity] Heart Rate [ 73 Brachial] Heart Rate [ Supine] Respiratory 18 Rate Blood Pressure [Activity] Blood Pressure 104/42 L [Right Brachial artery] Blood Pressure [Supine] O2 Saturation 99 Oxygen O2 Source Nasal cannula I&O (Last 24 Hrs): Intake and Output Totals x24h 03/20/18 03/21/18 03/22/18 23:59 23:59 23:59 Intake Total 1738 1000 Output Total 550 1275 Balance 1188 -275 General: Alert HEENT: Other (Hoarse voice) Neck: Supple, No JVD Neuro: Non Focal Cardiovascular: Other (Distane heart sounds) Abdomen: Normal bowel sounds, Soft Extremities: Other (1-2+ edema, venous stasis changes and vericose veins) - Results Results: Laboratory Results WBC 2.6 x10^3/uL (4.8-10.8) L 03/22/18 05:33 RBC 3.58 10^6/uL (4.70-6.10) L 03/22/18 05:33 Hgb 10.6 g/dL (14.0-18.0) L 03/22/18 05:33 Hct 32.4 % (42.0-52.0) L 03/22/18 05:33 MCV 90.5 fL (80.0-94.0) 03/22/18 05:33 MCH 29.7 pg (27.0-31.0) 03/22/18 05:33 MCHC 32.8 g/dL (32.0-36.0) 03/22/18 05:33 RDW 16.1 % (12.0-15.0) H 03/22/18 05:33 Plt Count 76 10^3/uL (130-450) L 03/22/18 05:33 MPV 8.3 fL (7.4-11.4) 03/22/18 05:33 Neut # (Auto) 2.4 10^3/uL (1.5-6.6) 03/22/18 05:33 Lymph # (Auto) 0.3 10^3/uL (1.5-3.5) L 03/22/18 05:33 [place] # (Auto) 0.0 10^3/uL (0.0-1.0) 03/22/18 05:33 Eos # (Auto) 0.0 10^3/uL (0.0-0.7) 03/22/18 05:33 Baso # (Auto) 0.0 10^3/uL (0.0-0.1) 03/22/18 05:33 Absolute Nucleated RBC 0.00 x10^3/uL 03/22/18 05:33 Nucleated RBC % 0.1 /100WBC 03/22/18 05:33 Manual Slide Review Indicated 03/22/18 05:33 Platelet Estimate DECREASED (<130,000) (NORMAL) 03/22/18 05:33 Platelet Morphology NORMAL APPEARANCE (NORMAL) 03/22/18 05:33 RBC Morph Micro Appear NORMAL APPEARANCE (NORMAL) 03/22/18 05:33 PT 36.7 secs (9.9-12.6) H 03/22/18 05:33 INR 3.4 (0.8-1.2) H 03/22/18 05:33 Sodium 145 mmol/L (135-145) 03/22/18 05:33 Potassium 5.4 mmol/L (3.5-5.0) H 03/22/18 05:33 Chloride 115 mmol/L (101-111) H 03/22/18 05:33 Carbon Dioxide 23 mmol/L (21-32) 03/22/18 05:33 Anion Gap 7.0 (6-13) 03/22/18 05:33 BUN 51 mg/dL (6-20) H 03/22/18 05:33 Creatinine 1.8 mg/dL (0.6-1.2) H 03/22/18 05:33 Estimated GFR (MDRD) 36 (>89) L 03/22/18 05:33 Glucose 180 mg/dL (70-100) H 03/22/18 05:33 Calcium 8.8 mg/dL (8.5-10.3) 03/22/18 05:33 Magnesium 2.2 mg/dL (1.7-2.8) 03/22/18 05:33 Total Bilirubin 0.8 mg/dL (0.2-1.0) 03/22/18 05:33 AST 36 IU/L (10-42) 03/22/18 05:33 ALT 32 IU/L (10-60) 03/22/18 05:33 Alkaline Phosphatase 55 IU/L (42-121) 03/22/18 05:33 Troponin I < 0.04 ng/mL (<0.49) 03/22/18 05:33 B-Natriuretic Peptide 484 pg/mL (5-100) H 03/22/18 05:33 Total Protein 6.7 g/dL (6.7-8.2) 03/22/18 05:33 Albumin 3.7 g/dL (3.2-5.5) 03/22/18 05:33 Globulin 3.0 g/dL (2.1-4.2) 03/22/18 05:33 Albumin/Globulin Ratio 1.2 (1.0-2.2) 03/22/18 05:33 Lipase 49 U/L (22-51) 03/21/18 15:45
[2018-03-22 20:20] LABS: BILIRUBIN,URINE NEGATIVE (NEGATIVE); GLUCOSE, URINE (UA) NEGATIVE (NEGATIVE); KETONES,URINE (UA) NEGATIVE (NEGATIVE); LEUKOCYTE ESTERASE, URINE NEGATIVE (NEGATIVE); NITRITE,URINE NEGATIVE (NEGATIVE); OCCULT BLOOD,URINE SMALL (NEGATIVE); PH,URINE 5.5 PH (5.0-7.5); PROTEIN,URINE NEGATIVE (NEGATIVE); UROBILINOGEN,URINE 0.2 (NORMAL) E.U./dL (NORMAL)
[2018-03-22 20:30] LABS: CLARITY,URINE CLEAR (CLEAR); WBC CLUMPS,URINE PRESENT
[2018-03-22 20:31] LABS: BACTERIA,URINE Rare /HPF (None Seen); CASTS, URINE 6-10 Hyaline Casts /LPF; SQUAMOUS EPITHELIAL CELL,UR RARE Squamous (<= Few)
[2018-03-23] MEDS: SODIUM CHLORIDE FLUSH 0.9% 10 ML SYRINGE IVP SCH ×3 (00:10→17:10)
[2018-03-23 06:06] LABS: INR 3.1 (0.8-1.2); PT - PROTHROMBIN TIME 33.3 secs (9.9-12.6)
[2018-03-23 06:10] LABS: BASOPHILS % (AUTO) 0.2 %; HGB - HEMOGLOBIN 9.7 g/dL (14.0-18.0); LYMPHOCYTES # (AUTO) 0.5 10^3/uL (1.5-3.5); MEAN CORPUSCULAR HEMOGLOBIN 29.8 pg (27.0-31.0); MEAN CORPUSCULAR HGB CONC 33.2 g/dL (32.0-36.0); MEAN CORPUSCULAR VOLUME 89.8 fL (80.0-94.0); MEAN PLATELET VOLUME 8.8 fL (7.4-11.4); MONOCYTES % (AUTO) 11.5 %; NEUTROPHILS # (AUTO) 7.2 10^3/uL (1.5-6.6); NEUTROPHILS % (AUTO) 82.3 %; PLT - PLATELET COUNT 76 10^3/uL (130-450); RED BLOOD COUNT 3.27 10^6/uL (4.70-6.10); RED CELL DISTRIBUTION WIDTH 16.1 % (12.0-15.0); WHITE BLOOD COUNT 8.8 x10^3/uL (4.8-10.8)
[2018-03-23 06:18] LABS: ALBUMIN 3.3 g/dL (3.2-5.5); ALBUMIN/GLOBULIN RATIO 1.3 (1.0-2.2); BILIRUBIN,TOTAL 0.4 mg/dL (0.2-1.0); CALCIUM 8.6 mg/dL (8.5-10.3); CREATININE 2.2 mg/dL (0.6-1.2); TOTAL PROTEIN 5.9 g/dL (6.7-8.2)
[2018-03-23] MEDS: amLODIPine 5 MG TABLET PO SCH (06:45)
[2018-03-23] MEDS: POLYETHYLENE GLYCOL 3350 17 GM PACKET PO SCH (08:13)
[2018-03-23] MEDS: FAMOTIDINE 20 MG TABLET PO SCH (08:14)
[2018-03-23] MEDS: CARVEDILOL 12.5 MG TABLET PO SCH ×2 (08:14→21:59)
[2018-03-23] MEDS: FUROSEMIDE 40 MG/4 ML VIAL IVP SCH (08:17)
--- NOTE | 2018-03-23 12:44 | PROVIDER PROGRESS NOTE ---
Assessment/Plan - Problem List (1) Acute on chronic diastolic heart failure Assessment/Plan: Pt is not in neg fluid balance, is equal I's and Os since admission. His O2 sat was 86% on R.A. at rest, therefore he was not exercised with R.T. Will decrease Amlodipine dose, due to relatively low BP and this high dose may be adding to leg edema. (2) S/P aortic valve and mitral valve replacement Assessment/Plan: Stable (3) Hyperkalemia Assessment/Plan: Resolved (4) Chronic renal insufficiency Qualifiers: Chronic kidney disease stage: stage 3 (moderate) Qualified Code(s): N18.3 - Chronic kidney disease, stage 3 (moderate) Assessment/Plan: Stable but abnormal. Monitor BMP daily. (5) History of stroke Assessment/Plan: Today, the patient's gait is worse than yesterday, falling backward. This was noted by RN. I spoke to patient's daughter and updated her. She described a very high INR alot recently. Will obtain a head CT. Continue ASA, statin. (6) History of urostomy Assessment/Plan: Abnormal Urinalysis. Awaiting culture. - Current Meds Current Meds: Current Medications Generic Name Dose Route Start Last Admin Trade Name Freq PRN Reason Stop Dose Admin Carvedilol 25 mg 03/21/18 21:00 03/23/18 08:14 Coreg PO 25 mg BID EDGAR Administration Famotidine 20 mg 03/22/18 09:00 03/23/18 08:14 Pepcid PO 20 mg DAILY EDGAR Administration Polyethylene Glycol 17 gm 03/22/18 09:00 03/23/18 08:13 Miralax PO 17 gm DAILY EDGAR Administration Sodium Chloride 10 ml 03/21/18 18:01 03/21/18 21:08 Normal Saline Flush 0.9% IVP 10 ml PRN PRN Administration NEEDED PER PROVIDER ORDERS Sodium Chloride 10 ml 03/22/18 01:00 03/23/18 08:17 Normal Saline Flush 0.9% IVP 10 ml 0100,0900,1700 EDGAR Administration - Lab Result Fish Bone Diagrams: 03/25/18 05:25 03/25/18 05:25 - Additional Planning My Orders: My Active Orders 03/22/18 17:14 Miscellaenous Nursing Order [RC] QSHIFT 03/22/18 20:15 CUL, URINE [RM] Urgent 03/23/18 12:41 Head W/O [CT] Routine 03/23/18 14:00 Warfarin [Coumadin] 1 mg PO QDWARFARIN 03/23/18 Breakfast Hepatic/Renal Diet [DIET] 03/24/18 05:00 BMP - BASIC METABOLIC PANEL [CHEM] DAILYLAB 03/24/18 07:00 amLODIPine [Norvasc] 5 mg PO QDAC 03/25/18 05:00 BMP - BASIC METABOLIC PANEL [CHEM] DAILYLAB Subjective - Subjective Patient Reports: Feeling Better, Resting Comfortably Objective Vital Signs: Vital Signs - 24 hr 03/22/18 03/22/18 03/22/18 12:45 16:00 20:17 Temperature 36.4 C L 36.1 C L 36.9 C Heart Rate Heart Rate [ 85 73 70 Brachial] Respiratory 19 18 18 Rate Blood Pressure [Left Radial artery] Blood Pressure 103/46 L 104/42 L 100/35 L [Right Brachial artery] O2 Saturation 96 99 96 03/22/18 03/22/18 03/22/18 20:33 22:00 23:45 Temperature 36.3 C L Heart Rate 70 Heart Rate [ 70 Brachial] Respiratory 18 16 Rate Blood Pressure [Left Radial artery] Blood Pressure 110/42 L 108/39 L [Right Brachial artery] O2 Saturation 96 03/23/18 03/23/18 03/23/18 04:15 06:41 07:38 Temperature 36.7 C 36.9 C Heart Rate Heart Rate [ 71 64 71 Brachial] Respiratory 16 16 Rate Blood Pressure [Left Radial artery] Blood Pressure 112/37 L 119/48 L 116/54 L [Right Brachial artery] O2 Saturation 97 99 03/23/18 03/23/18 09:15 12:35 Temperature Heart Rate 70 Heart Rate [ 64 Brachial] Respiratory 16 20 Rate Blood Pressure 125/48 L [Left Radial artery] Blood Pressure [Right Brachial artery] O2 Saturation 92 Oxygen O2 Source Nasal cannula I&O (Last 24 Hrs): Intake and Output Totals x24h 03/21/18 03/22/18 03/23/18 23:59 23:59 23:59 Intake Total 1738 1350 450 Output Total 550 1550 1275 Balance 1188 -200 -825 General: Alert HEENT: Mucous membr. moist/pink Neck: Supple, No JVD Neuro: Non Focal Cardiovascular: Other (Heart sounds are distant (this is not new)) Respiratory: No respiratory distress, Breath sounds nml Abdomen: Soft Extremities: No edema - Results Results: Laboratory Results WBC 8.8 x10^3/uL (4.8-10.8) 03/23/18 05:21 RBC 3.27 10^6/uL (4.70-6.10) L 03/23/18 05:21 Hgb 9.7 g/dL (14.0-18.0) L 03/23/18 05:21 Hct 29.4 % (42.0-52.0) L 03/23/18 05:21 MCV 89.8 fL (80.0-94.0) 03/23/18 05:21 MCH 29.8 pg (27.0-31.0) 03/23/18 05:21 MCHC 33.2 g/dL (32.0-36.0) 03/23/18 05:21 RDW 16.1 % (12.0-15.0) H 03/23/18 05:21 Plt Count 76 10^3/uL (130-450) L 03/23/18 05:21 MPV 8.8 fL (7.4-11.4) 03/23/18 05:21 Neut # (Auto) 7.2 10^3/uL (1.5-6.6) H 03/23/18 05:21 Lymph # (Auto) 0.5 10^3/uL (1.5-3.5) L 03/23/18 05:21 [place] # (Auto) 1.0 10^3/uL (0.0-1.0) 03/23/18 05:21 Eos # (Auto) 0.0 10^3/uL (0.0-0.7) 03/23/18 05:21 Baso # (Auto) 0.0 10^3/uL (0.0-0.1) 03/23/18 05:21 Absolute Nucleated RBC 0.00 x10^3/uL 03/23/18 05:21 Nucleated RBC % 0.0 /100WBC 03/23/18 05:21 Manual Slide Review Indicated 03/22/18 05:33 Platelet Estimate DECREASED (<130,000) (NORMAL) 03/22/18 05:33 Platelet Morphology NORMAL APPEARANCE (NORMAL) 03/22/18 05:33 RBC Morph Micro Appear NORMAL APPEARANCE (NORMAL) 03/22/18 05:33 PT 33.3 secs (9.9-12.6) H 03/23/18 05:21 INR 3.1 (0.8-1.2) H 03/23/18 05:21 Sodium 146 mmol/L (135-145) H 03/23/18 05:21 Potassium 4.6 mmol/L (3.5-5.0) 03/23/18 05:21 Chloride 114 mmol/L (101-111) H 03/23/18 05:21 Carbon Dioxide 23 mmol/L (21-32) 03/23/18 05:21 Anion Gap 9.0 (6-13) 03/23/18 05:21 BUN 66 mg/dL (6-20) H 03/23/18 05:21 Creatinine 2.2 mg/dL (0.6-1.2) H 03/23/18 05:21 Estimated GFR (MDRD) 28 (>89) L 03/23/18 05:21 Glucose 88 mg/dL (70-100) 03/23/18 05:21 Calcium 8.6 mg/dL (8.5-10.3) 03/23/18 05:21 Magnesium 2.0 mg/dL (1.7-2.8) 03/23/18 05:21 Total Bilirubin 0.4 mg/dL (0.2-1.0) 03/23/18 05:21 AST 23 IU/L (10-42) 03/23/18 05:21 ALT 24 IU/L (10-60) 03/23/18 05:21 Alkaline Phosphatase 44 IU/L (42-121) 03/23/18 05:21 Troponin I < 0.04 ng/mL (<0.49) 03/22/18 05:33 B-Natriuretic Peptide 427 pg/mL (5-100) H 03/23/18 05:21 Total Protein 5.9 g/dL (6.7-8.2) L 03/23/18 05:21 Albumin 3.3 g/dL (3.2-5.5) 03/23/18 05:21 Globulin 2.6 g/dL (2.1-4.2) 03/23/18 05:21 Albumin/Globulin Ratio 1.3 (1.0-2.2) 03/23/18 05:21 Lipase 49 U/L (22-51) 03/21/18 15:45 Urine Color YELLOW 03/22/18 20:15 Urine Clarity CLEAR (CLEAR) 03/22/18 20:15 Urine pH 5.5 PH (5.0-7.5) 03/22/18 20:15 Ur Specific [place] 1.015 (1.002-1.030) 03/22/18 20:15 Urine Protein NEGATIVE mg/dL (NEGATIVE) 03/22/18 20:15 Urine Glucose (UA) NEGATIVE mg/dL (NEGATIVE) 03/22/18 20:15 Urine Ketones NEGATIVE mg/dL (NEGATIVE) 03/22/18 20:15 Urine Occult Blood SMALL (NEGATIVE) H 03/22/18 20:15 Urine Nitrite NEGATIVE (NEGATIVE) 03/22/18 20:15 Urine Bilirubin NEGATIVE (NEGATIVE) 03/22/18 20:15 Urine Urobilinogen 0.2 (NORMAL) E.U./dL (NORMAL) 03/22/18 20:15 Ur Leukocyte Esterase NEGATIVE (NEGATIVE) 03/22/18 20:15 Urine RBC 11-25 /HPF (0-5) H 03/22/18 20:15 Urine WBC 11-25 /HPF (0-3) H 03/22/18 20:15 Urine WBC Clumps PRESENT 03/22/18 20:15 Ur Squamous Epith Cells RARE Squamous (<= Few) 03/22/18 20:15 Urine Bacteria Rare /HPF (None Seen) 03/22/18 20:15 Urine Casts 6-10 Hyaline Casts /LPF 03/22/18 20:15 Urine Culture Comments INDICATED 03/22/18 20:15
[2018-03-23] MEDS ORDERED: WARFARIN 1 MG TABLET PO SCH (14:00)
--- NOTE | 2018-03-23 14:24 | CT Report ---
Reason: Gait worse since 2 d ago, remote hx of brain bleed Procedure Date: 03/23/2018 Accession Number: [id number] / [id number] Procedure: CT - Head W/O CPT Code: FULL RESULT: EXAM: CT HEAD EXAM DATE: 03/23/2018 01:22 PM. CLINICAL HISTORY: Gait worse since 2 d ago, remote hx of brain bleed. COMPARISON: 10/31/2017. TECHNIQUE: Multiaxial CT images were obtained from the foramen magnum to the vertex. Reformats: Coronal. IV contrast: None. In accordance with CT protocol optimization, one or more of the following dose reduction techniques were utilized for this exam: automated exposure control, adjustment of mA and/or KV based on patient size, or use of iterative reconstructive technique. FINDINGS: Parenchyma: No intraparenchymal hemorrhage. No evidence of mass, midline shift, or CT findings of acute infarction. 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 Hill-white differentiation is distinct. Diffuse chronic microangiopathic white matter changes are evident. Extraaxial Spaces: Normal for age. No subdural or epidural collections. Ventricles: The ventricles and cortical sulci are enlarged, consistent with age-related tissue loss. Sinuses and orbits: Imaged paranasal sinuses, orbits, and mastoids show no significant abnormality. Bones: Unremarkable. Other: None. IMPRESSION: Chronic findings including old right occipital infarction. No definite acute disease. RADIA
[2018-03-24] MEDS: SODIUM CHLORIDE FLUSH 0.9% 10 ML SYRINGE IVP SCH ×4 (00:30→23:57)
[2018-03-24 06:05] LABS: BASOPHILS % (AUTO) 0.6 %; EOSINOPHILS # (AUTO) 0.1 10^3/uL (0.0-0.7); EOSINOPHILS % (AUTO) 1.7 %; HGB - HEMOGLOBIN 9.8 g/dL (14.0-18.0); INR 1.9 (0.8-1.2); LYMPHOCYTES # (AUTO) 0.8 10^3/uL (1.5-3.5); LYMPHOCYTES % (AUTO) 11.9 %; MEAN CORPUSCULAR HEMOGLOBIN 29.5 pg (27.0-31.0); MEAN CORPUSCULAR HGB CONC 33.3 g/dL (32.0-36.0); MEAN CORPUSCULAR VOLUME 88.5 fL (80.0-94.0); MEAN PLATELET VOLUME 8.5 fL (7.4-11.4); MONOCYTES # (AUTO) 0.9 10^3/uL (0.0-1.0); MONOCYTES % (AUTO) 12.8 %; NEUTROPHILS # (AUTO) 5.1 10^3/uL (1.5-6.6); PLT - PLATELET COUNT 68 10^3/uL (130-450); PT - PROTHROMBIN TIME 20.6 secs (9.9-12.6); RED BLOOD COUNT 3.31 10^6/uL (4.70-6.10); RED CELL DISTRIBUTION WIDTH 15.9 % (12.0-15.0); WHITE BLOOD COUNT 6.9 x10^3/uL (4.8-10.8)
[2018-03-24 06:13] LABS: CALCIUM 8.5 mg/dL (8.5-10.3); CREATININE 2.2 mg/dL (0.6-1.2)
[2018-03-24] MEDS: amLODIPine 5 MG TABLET PO SCH (06:41)
[2018-03-24] MEDS ORDERED: WARFARIN 2.5 MG TABLET PO ONE (07:55)
[2018-03-24] MEDS: POLYETHYLENE GLYCOL 3350 17 GM PACKET PO SCH (09:20)
[2018-03-24] MEDS: CARVEDILOL 12.5 MG TABLET PO SCH ×2 (09:20→20:28)
[2018-03-24] MEDS: FAMOTIDINE 20 MG TABLET PO SCH (09:20)
--- NOTE | 2018-03-24 17:28 | PROVIDER PROGRESS NOTE ---
Assessment/Plan - Problem List (1) Acute on chronic diastolic heart failure Assessment/Plan: Desaturations are not improving despite clear lung ddields and increased BUN/ creat ratio, indicating he is dry. iv Lasix stopped. Continue Coreg 25 bid No Lisinopril due to borderline low BP, normal LVEF and was hyperkalemic. He will probably be DC h tomorrow needing new home O2 order. This was discussed with and daughter, Karol and they are in agreement. (2) S/P aortic valve and mitral valve replacement Assessment/Plan: Stable AVR and MVR on Echo. INR daily, target 2.5-3.5 (3) Hyperkalemia Assessment/Plan: Resolved off [place] and after iv Lasix and diuresis. (4) Chronic renal insufficiency Qualifiers: Chronic kidney disease stage: stage 3 (moderate) Qualified Code(s): N18.3 - Chronic kidney disease, stage 3 (moderate) Assessment/Plan: Acute on chronic worsening, indicating dry. iv Lasix stopped. Will probably need po Lasix only Mon, Wed, Fri, when DCh (5) History of stroke Assessment/Plan: Walking with PT and , using a quad walker and he was able to ambulate in hallway today. (6) History of urostomy Assessment/Plan: U/A was unremarkable for a UTI with neg cultures. (7) Thrombocytopenia Assessment/Plan: Chronic since admission and stable. - Current Meds Current Meds: Current Medications Generic Name Dose Route Start Last Admin Trade Name Freq PRN Reason Stop Dose Admin Albuterol/Ipratropium 3 ml 03/21/18 18:47 03/23/18 19:27 Duoneb INH 3 ml Q4HR PRN Administration Wheezing Amlodipine Besylate 5 mg 03/24/18 07:00 03/24/18 06:41 Norvasc PO 5 mg QDAC EDGAR Administration Carvedilol 25 mg 03/21/18 21:00 03/24/18 09:20 Coreg PO 25 mg BID EDGAR Administration Famotidine 20 mg 03/22/18 09:00 03/24/18 09:20 Pepcid PO 20 mg DAILY EDGAR Administration Polyethylene Glycol 17 gm 03/22/18 09:00 03/24/18 09:20 Miralax PO 17 gm DAILY EDGAR Administration Sodium Chloride 10 ml 03/21/18 18:01 03/21/18 21:08 Normal Saline Flush 0.9% IVP 10 ml PRN PRN Administration NEEDED PER PROVIDER ORDERS Sodium Chloride 10 ml 03/22/18 01:00 03/24/18 09:20 Normal Saline Flush 0.9% IVP 10 ml 0100,0900,1700 EDGAR Administration - Lab Result Fish Bone Diagrams: 03/24/18 05:30 03/24/18 05:30 - Additional Planning My Orders: My Active Orders 03/24/18 Evaluate and Treat OT [OT] Routine 03/24/18 07:00 amLODIPine [Norvasc] 5 mg PO QDAC 03/25/18 05:00 BMP - BASIC METABOLIC PANEL [CHEM] DAILYLAB 03/25/18 14:00 Warfarin [Coumadin] 2 mg PO QDWARFARIN Subjective - Subjective Patient Reports: Feeling Better, Resting Comfortably Nursing Reports: Other (Desats to 86% on R.A. at rest still) Objective Vital Signs: Vital Signs - 24 hr 03/23/18 03/23/18 03/24/18 19:31 20:01 00:00 Temperature 36.3 C L 36.5 C Heart Rate 75 Heart Rate [ 60 61 Brachial] Heart Rate [ Radial] Respiratory 18 20 18 Rate Blood Pressure 103/42 L [Left Radial artery] Blood Pressure 123/50 L [Right Brachial artery] Blood Pressure [Right Radial artery] O2 Saturation 93 98 03/24/18 03/24/18 03/24/18 05:00 07:49 13:00 Temperature 36.6 C 36.3 C L 36.5 C Heart Rate Heart Rate [ 61 61 60 Brachial] Heart Rate [ Radial] Respiratory 18 16 16 Rate Blood Pressure [Left Radial artery] Blood Pressure [Right Brachial artery] Blood Pressure 105/40 L 115/42 L 112/42 L [Right Radial artery] O2 Saturation 97 95 98 03/24/18 16:28 Temperature 36.2 C L Heart Rate Heart Rate [ Brachial] Heart Rate [ 61 Radial] Respiratory 16 Rate Blood Pressure [Left Radial artery] Blood Pressure [Right Brachial artery] Blood Pressure 100/40 L [Right Radial artery] O2 Saturation 99 Oxygen O2 Source Nasal cannula I&O (Last 24 Hrs): Intake and Output Totals x24h 03/22/18 03/23/18 03/24/18 23:59 23:59 23:59 Intake Total 1350 890 660 Output Total 5542024 550 Balance -200 -1135 110 General: Alert HEENT: Mucous membr. moist/pink Neck: Supple, No JVD Neuro: Non Focal Cardiovascular: Regular rate, No murmurs Respiratory: Breath sounds nml Abdomen: Soft Extremities: Other (Trace edema) - Results Results: Laboratory Results WBC 6.9 x10^3/uL (4.8-10.8) 03/24/18 05:30 RBC 3.31 10^6/uL (4.70-6.10) L 03/24/18 05:30 Hgb 9.8 g/dL (14.0-18.0) L 03/24/18 05:30 Hct 29.3 % (42.0-52.0) L 03/24/18 05:30 MCV 88.5 fL (80.0-94.0) 03/24/18 05:30 MCH 29.5 pg (27.0-31.0) 03/24/18 05:30 MCHC 33.3 g/dL (32.0-36.0) 03/24/18 05:30 RDW 15.9 % (12.0-15.0) H 03/24/18 05:30 Plt Count 68 10^3/uL (130-450) L 03/24/18 05:30 MPV 8.5 fL (7.4-11.4) 03/24/18 05:30 Neut # (Auto) 5.1 10^3/uL (1.5-6.6) 03/24/18 05:30 Lymph # (Auto) 0.8 10^3/uL (1.5-3.5) L 03/24/18 05:30 [place] # (Auto) 0.9 10^3/uL (0.0-1.0) 03/24/18 05:30 Eos # (Auto) 0.1 10^3/uL (0.0-0.7) 03/24/18 05:30 Baso # (Auto) 0.0 10^3/uL (0.0-0.1) 03/24/18 05:30 Absolute Nucleated RBC 0.01 x10^3/uL 03/24/18 05:30 Nucleated RBC % 0.1 /100WBC 03/24/18 05:30 Manual Slide Review Indicated 03/22/18 05:33 Platelet Estimate DECREASED (<130,000) (NORMAL) 03/22/18 05:33 Platelet Morphology NORMAL APPEARANCE (NORMAL) 03/22/18 05:33 RBC Morph Micro Appear NORMAL APPEARANCE (NORMAL) 03/22/18 05:33 PT 20.6 secs (9.9-12.6) H 03/24/18 05:30 INR 1.9 (0.8-1.2) H 03/24/18 05:30 Sodium 144 mmol/L (135-145) 03/24/18 05:30 Potassium 4.6 mmol/L (3.5-5.0) 03/24/18 05:30 Chloride 111 mmol/L (101-111) 03/24/18 05:30 Carbon Dioxide 25 mmol/L (21-32) 03/24/18 05:30 Anion Gap 8.0 (6-13) 03/24/18 05:30 BUN 71 mg/dL (6-20) H 03/24/18 05:30 Creatinine 2.2 mg/dL (0.6-1.2) H 03/24/18 05:30 Estimated GFR (MDRD) 28 (>89) L 03/24/18 05:30 Glucose 81 mg/dL (70-100) 03/24/18 05:30 Calcium 8.5 mg/dL (8.5-10.3) 03/24/18 05:30 Magnesium 2.0 mg/dL (1.7-2.8) 03/24/18 05:30 Total Bilirubin 0.4 mg/dL (0.2-1.0) 03/23/18 05:21 AST 23 IU/L (10-42) 03/23/18 05:21 ALT 24 IU/L (10-60) 03/23/18 05:21 Alkaline Phosphatase 44 IU/L (42-121) 03/23/18 05:21 Troponin I < 0.04 ng/mL (<0.49) 03/22/18 05:33 B-Natriuretic Peptide 311 pg/mL (5-100) H 03/24/18 05:30 Total Protein 5.9 g/dL (6.7-8.2) L 03/23/18 05:21 Albumin 3.3 g/dL (3.2-5.5) 03/23/18 05:21 Globulin 2.6 g/dL (2.1-4.2) 03/23/18 05:21 Albumin/Globulin Ratio 1.3 (1.0-2.2) 03/23/18 05:21 Lipase 49 U/L (22-51) 03/21/18 15:45 Urine Color YELLOW 03/22/18 20:15 Urine Clarity CLEAR (CLEAR) 03/22/18 20:15 Urine pH 5.5 PH (5.0-7.5) 03/22/18 20:15 Ur Specific [place] 1.015 (1.002-1.030) 03/22/18 20:15 Urine Protein NEGATIVE mg/dL (NEGATIVE) 03/22/18 20:15 Urine Glucose (UA) NEGATIVE mg/dL (NEGATIVE) 03/22/18 20:15 Urine Ketones NEGATIVE mg/dL (NEGATIVE) 03/22/18 20:15 Urine Occult Blood SMALL (NEGATIVE) H 03/22/18 20:15 Urine Nitrite NEGATIVE (NEGATIVE) 03/22/18 20:15 Urine Bilirubin NEGATIVE (NEGATIVE) 03/22/18 20:15 Urine Urobilinogen 0.2 (NORMAL) E.U./dL (NORMAL) 03/22/18 20:15 Ur Leukocyte Esterase NEGATIVE (NEGATIVE) 03/22/18 20:15 Urine RBC 11-25 /HPF (0-5) H 03/22/18 20:15 Urine WBC 11-25 /HPF (0-3) H 03/22/18 20:15 Urine WBC Clumps PRESENT 03/22/18 20:15 Ur Squamous Epith Cells RARE Squamous (<= Few) 03/22/18 20:15 Urine Bacteria Rare /HPF (None Seen) 03/22/18 20:15 Urine Casts 6-10 Hyaline Casts /LPF 03/22/18 20:15 Urine Culture Comments INDICATED 03/22/18 20:15
[2018-03-25 06:10] LABS: BASOPHILS % (AUTO) 0.5 %; EOSINOPHILS # (AUTO) 0.3 10^3/uL (0.0-0.7); EOSINOPHILS % (AUTO) 4.1 %; HGB - HEMOGLOBIN 9.6 g/dL (14.0-18.0); INR 1.7 (0.8-1.2); LYMPHOCYTES # (AUTO) 0.6 10^3/uL (1.5-3.5); LYMPHOCYTES % (AUTO) 10.1 %; MEAN CORPUSCULAR VOLUME 90.8 fL (80.0-94.0); MEAN PLATELET VOLUME 8.8 fL (7.4-11.4); MONOCYTES # (AUTO) 0.9 10^3/uL (0.0-1.0); MONOCYTES % (AUTO) 13.7 %; NEUTROPHILS # (AUTO) 4.5 10^3/uL (1.5-6.6); NEUTROPHILS % (AUTO) 71.6 %; PLT - PLATELET COUNT 63 10^3/uL (130-450); PT - PROTHROMBIN TIME 18.3 secs (9.9-12.6); RED BLOOD COUNT 3.19 10^6/uL (4.70-6.10); WHITE BLOOD COUNT 6.3 x10^3/uL (4.8-10.8)
[2018-03-25 06:13] LABS: CALCIUM 8.1 mg/dL (8.5-10.3); CREATININE 2.3 mg/dL (0.6-1.2); MAGNESIUM 2.1 mg/dL (1.7-2.8)
[2018-03-25] MEDS: amLODIPine 5 MG TABLET PO SCH (06:18)
[2018-03-25] MEDS: FAMOTIDINE 20 MG TABLET PO SCH (08:57)
[2018-03-25] MEDS: CARVEDILOL 12.5 MG TABLET PO SCH (08:57)
[2018-03-25] MEDS: POLYETHYLENE GLYCOL 3350 17 GM PACKET PO SCH (08:58)
[2018-03-25] MEDS: SODIUM CHLORIDE FLUSH 0.9% 10 ML SYRINGE IVP SCH (08:59)
[2018-03-25] MEDS ORDERED: DOCUSATE SODIUM 250 MG CAPSULE PO SCH (09:00)
[2018-03-25] MEDS ORDERED: SENNA 8.6 MG TABLET PO SCH (09:00)
[2018-03-25] MEDS ORDERED: WARFARIN 1 MG TABLET PO ONE (09:25)
[2018-03-25] MEDS ORDERED: FUROSEMIDE 40 MG TABLET PO SCH (11:57)
--- NOTE | 2018-03-25 12:33 | Discharge Plan ---
Discharge Plan Disposition: Home, Self Care Condition: Stable Prescriptions: amLODIPine [Norvasc] 5 mg PO DAILY #30 tablet Furosemide [Lasix] 40 mg PO MOWEFR #15 tablet Diet: Cardiac Activity Restrictions: Activity as Tolerated Assistance Devices: Walker Additional Instructions or Follow Up instructions: You were admitted with fluid overload from CHF. The combination of CHF and pulmonary fibrosis has made it necessary for you to use oxygen. Oxygen has been ordered for you to now use at home. Please note the changes in medications and follow the new list. See your PCP in follow-up in 1-2 weeks. Return to the ER if you have new or worsening symptoms. No Smoking: If you smoke, Please STOP! Call for help. Follow-up with: Thomas Echevarria MD [Primary Care Provider] -
[2018-03-25 13:15] VITALS: BP 113/41
[2018-03-25] MEDS ORDERED: WARFARIN 1 MG TABLET PO SCH (14:00)
--- NOTE | 2018-03-26 01:44 | DISCHARGE SUMMARY ---
Physician: Tammie Soni MD DATE OF ADMISSION: 03/21/2018 DATE OF DISCHARGE: 03/25/2018 HISTORY OF PRESENT ILLNESS: This is an 88-year-old, white male with a history of hemorrhagic stroke, coronary bypass surgery, aortic and mitral valve replacements, pacemaker, pulmonary fibrosis, prostate cancer requiring radiation and a urostomy. Patient developed weakness over about 2 days and then shortness of breath, and was brought to the emergency room. He was found to have hypoxia and desaturations due to heart failure. He was admitted for management. HOSPITAL COURSE AND DISCHARGE DIAGNOSES 1. Acute on chronic diastolic heart failure. Patient had troponins that were negative for an LA. An Echo was done that showed LVEF 60% to 65% with grade 2 diastolic dysfunction, severe right ventricular enlargement with preserved RV function and a pacemaker seen, severe left atrial enlargement, moderate right atrial enlargement, normally functioning prosthetic aortic valve and prosthetic mitral valve. A tricuspid valve ring was seen with mild tricuspid regurgitation. Calculated PA pressure 75 mmHg, which was decreased from 115 mmHg 8 months previously. The patient was diuresed using Lasix, and had significant improvement in respiratory status. The family had wanted to take him home when no further oxygen was needed. However, he was evaluated with exercise oximetry and, despite clear lung yañez, his oxygen saturations on 2 different days were below 90%. On 03/25/18, O2 saturation at rest on room air was 85%, O2 saturation at rest on 2 liters nasal cannula was 92. With walking, O2 saturations on 2 liters nasal cannula were 90%. Therefore, I ordered home oxygen at 2 liters per minute continuously to treat his CHF, pulmonary fibrosis and pulmonary hypertension. 2. Aortic valve replacement, mitral valve replacement, tricuspid valve annuloplasty, pacemaker. These were all functioning adequately, as per the Echo report (see above). 3. Coronary artery disease with prior bypass surgery. The patient was continued on his amlodipine and carvedilol. Because he had no evidence of systolic failure, his lisinopril was stopped because of hyperkalemia, and the amlodipine dose was decreased from 10 mg to 5 mg to prevent leg edema at this maximum dose and prevent hypotension. 4. Recent hemorrhagic stroke while on Coumadin. This patient had a cognitive decline, as well as weakness following this, but has now resumed Coumadin since he has a prosthetic mechanical heart valve. The patient performed physical therapy while here and was able to ambulate independently using a front-wheeled walker. 5. Pulmonary fibrosis. Despite adequate diuresis of his heart failure, the patient required supplemental oxygen as above, which was felt to be due to his underlying pulmonary fibrosis. 6. Urostomy. The patient had urinalysis done here that was unremarkable for bacteria and a culture was sent, which was also negative. 7. Weakness. This was felt to be multifactorial. He had improvement in muscle weakness while here. Then, one day had worsening gait, falling backward. A head CT was done on that day to rule out a recurrent intracranial hemorrhage since he was back on Coumadin. CT of the head did not show any hemorrhage or acute event. On the following day, his gait and strength improved and he was discharged to home to resume home health care with nurses, PT and OT. 8. Erratic INR. The daughter, who is a nurse, describes that he requires Coumadin doses between 1 mg and 7 mg daily. While here, he had initial INR of 3.6, and then had a slow decline throughout his entire stay down to 1.7. This was despite escalating doses of Coumadin gingerly. Further management of this is as previously done with his PCP. 9. The patient's admission BUN and creatinine were 51 and 1.8, and at the time of discharge 72 and 2.3. Because of this, no lisinopril was continued at discharge and a Lasix dose was advised, but to only be used on Wednesday, Wednesday , Wednesday. LABS AND IMAGING: reviewed and summarized above. ALLERGIES: NONE. MEDICATIONS AT THE TIME OF DISCHARGE 1. Coreg 25 mg b.i.d. 2. Amlodipine 5 mg daily. 3. Lasix 40 mg on Wednesday, Wednesday, Wednesday only. 4. Warfarin 1 or 2 mg daily, depending on INR. His Lisinopril was discontinued because of hyperkalemia on admission. PHYSICAL EXAMINATION AT DISCHARGE VITAL SIGNS: Stable. Blood pressure 113/41, heart rate 62, afebrile, 94% saturation on 2.5 liters nasal cannula. HEENT: Moist oral mucosa. NECK: Without JVD. CHEST: Clear, except left base crackles. HEART: Heart sounds distant. ABDOMEN: Soft with positive bowel sounds. EXTREMITIES: Trace pedal edema and varicose veins present bilaterally. NEUROLOGIC: Weakness, but no focal findings. FOLLOWUP: With his PCP in 1-2 weeks. CODE STATUS: DNR. TIME REQUIRED TO COMPLETE THIS ENTIRE DISCHARGE, DICTATION, CHART REVIEW, EDUCATION WITH THE PATIENT AND FAMILY, PRESCRIPTION MANAGEMENT: 60 minutes. cc: Thomas Echevarria MD TD: 03/25/2018 23:39 MTD
== END 2018-03-25 13:52 | disposition home or self-care (01) | DRG 291 ==
LOC: ED 14:41 → MS2 18:02
PROVIDERS: ADMIT Internal Medicine; ATTEND Internal Medicine
DX: I13.0 Hypertensive heart and chronic kidney disease with heart failure and stage 1 through stage 4 chronic kidney disease, or unspecified chronic kidney disease (principal); I50.33 Acute on chronic diastolic (congestive) heart failure; M62.81 Muscle weakness (generalized); N18.9 Chronic kidney disease, unspecified; I69.854 Hemiplegia and hemiparesis following other cerebrovascular disease affecting left non-dominant side; N18.3 Chronic kidney disease, stage 3 (moderate); J84.10 Pulmonary fibrosis, unspecified; I27.20 Pulmonary hypertension, unspecified; I69.819 Unspecified symptoms and signs involving cognitive functions following other cerebrovascular disease; E87.5 Hyperkalemia; I25.10 Atherosclerotic heart disease of native coronary artery without angina pectoris; Z93.6 Other artificial openings of urinary tract status; H54.7 Unspecified visual loss; H91.90 Unspecified hearing loss, unspecified ear; Z66 Do not resuscitate; Z51.5 Encounter for palliative care; Z77.090 Contact with and (suspected) exposure to asbestos; Z79.01 Long term (current) use of anticoagulants; Z95.1 Presence of aortocoronary bypass graft; Z95.2 Presence of prosthetic heart valve; Z95.0 Presence of cardiac pacemaker; Z85.46 Personal history of malignant neoplasm of prostate; Z99.81 Dependence on supplemental oxygen
CPT/HCPCS: 36415; 70450; 71046; 80048; 80053; 81001; 83690; 83735; 83880; 84132; 84484; 85025; 85610; 87086; 93306; 94640; 94761; 96374; 96375; 99223; 99284; 99285

== ENCOUNTER 2018-05-01 11:48 | Emergency (ER) | payer MEDICARE, OTHER ==
--- NOTE | 2018-05-01 12:16 | ED Physician Documentation ---
PD HPI MALE - Stated complaint Stated Complaint: MALE - Chief complaint Chief Complaint: UTI - History obtained from History obtained from: Patient, Family (daughter) - History of Present Illness Timing - onset: Last night (Most of the history of is from the daughter because of some cognitive issues. 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 He developed purulent urine in his urostomy bag today or at least it was noted today and he has been weak since last night but no complaints of fevers, flank pain, or abdominal pain. 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) : Other HEENT: Chronic vision loss, Chronic hearing loss Psych: None Musculoskeletal: Fatigue Derm: None - Past Surgical History Past Surgical History: Yes Cardiovascular: CABG, Valve replacement - Present Medications Home Medications: Ambulatory Orders Medication Instructions Recorded Confirmed Warfarin Sodium [Coumadin] 1 tab PO DAILY 10/23/17 05/01/18 Carvedilol [Coreg] 25 mg PO BID 01/08/18 05/01/18 Warfarin [Coumadin] 2 mg PO QDWARFARIN tablet 03/25/18 05/01/18 amLODIPine [Norvasc] 5 mg PO DAILY #30 tablet 03/25/18 05/01/18 Ciprofloxacin HCl [Cipro] 500 mg PO BID #20 tablet 05/01/18 Furosemide [Lasix] 20 mg PO DAILY 05/01/18 05/01/18 - Allergies Allergies/Adverse Reactions: Allergies Allergy/AdvReac Type Severity Reaction Status Date / Time No Known Drug Allergies Allergy Verified 10/23/17 11:37 - Social History Does the pt smoke?: No Smoking Status: Never smoker Does the pt drink ETOH?: No Does the pt have substance abuse?: No - Immunizations Immunizations are current?: Yes - POLST Patient has POLST: Yes POLST Status: DNR PD ED PE NORMAL - Vitals Vital signs reviewed: Yes - General General: No acute distress, Other (He is pleasant and cooperative, but a poor historian with poor short-term memory) - Abdomen Abdomen: Normal bowel sounds, Soft, Non tender, Other (Urostomy in the right lower quadrant with purulent urine in the bag.) - Extremities Extremities: No edema, No calf tenderness / cord - 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 Received Rocephin in the emergency department. - Sepsis Event Vital Signs: Vital Signs - 24 hr 05/01/18 11:58 Temperature 36.6 C Heart Rate 60 Respiratory 14 Rate Blood Pressure 121/55 L O2 Saturation 93 Oxygen O2 Source Room air Departure - Departure Disposition: 01 Home, Self Care Clinical Impression: History of urostomy, Subtherapeutic international normalized ratio (INR) UTI (urinary tract infection) Qualifiers: Urinary tract infection type: site unspecified Hematuria presence: without hematuria Qualified Code(s): N39.0 - Urinary tract infection, site not specified Condition: Stable Record reviewed to determine appropriate education?: Yes Instructions: ED UTI Cystitis Male Prescriptions: Ciprofloxacin HCl [Cipro] 500 mg PO BID #20 tablet Comments: We will culture your urine, the results should be done in 48-72 hours. If an antibiotic change is necessary we will call you. Return if worse in the meantime, especially if you develop increasing flank pain, fevers, or cannot keep down the medication. Often times when you start antibiotics while you are taking anticoagulants such as Coumadin or warfarin, your INR will go up. You need to have your INR checked frequently while on the antibiotics. Have it checked in 3 days, again in 6 days, and at least weekly while you are on antibiotics. Dose adjustments of your anticoagulants may be necessary.
[2018-05-01 12:35] LABS: BILIRUBIN,URINE NEGATIVE (NEGATIVE); GLUCOSE, URINE (UA) NEGATIVE (NEGATIVE); KETONES,URINE (UA) NEGATIVE (NEGATIVE); LEUKOCYTE ESTERASE, URINE LARGE (NEGATIVE); NITRITE,URINE POSITIVE (NEGATIVE); OCCULT BLOOD,URINE LARGE (NEGATIVE); PROTEIN,URINE >=300 mg/dL (NEGATIVE); UROBILINOGEN,URINE 0.2 (NORMAL) E.U./dL (NORMAL)
[2018-05-01 12:38] LABS: CLARITY,URINE TURBID (CLEAR)
[2018-05-01 12:43] LABS: BACTERIA,URINE Moderate /HPF (None Seen); SQUAMOUS EPITHELIAL CELL,UR NONE SEEN (<= Few); WBC CLUMPS,URINE PRESENT
[2018-05-01 12:55] LABS: BASOPHILS # (AUTO) 0.1 10^3/uL (0.0-0.1); BASOPHILS % (AUTO) 1.3 %; EOSINOPHILS # (AUTO) 0.1 10^3/uL (0.0-0.7); EOSINOPHILS % (AUTO) 1.8 %; HGB - HEMOGLOBIN 10.4 g/dL (14.0-18.0); LYMPHOCYTES # (AUTO) 0.5 10^3/uL (1.5-3.5); LYMPHOCYTES % (AUTO) 7.3 %; MEAN CORPUSCULAR HEMOGLOBIN 29.1 pg (27.0-31.0); MEAN CORPUSCULAR HGB CONC 33.9 g/dL (32.0-36.0); MEAN CORPUSCULAR VOLUME 86.1 fL (80.0-94.0); MEAN PLATELET VOLUME 7.4 fL (7.4-11.4); MONOCYTES # (AUTO) 1.2 10^3/uL (0.0-1.0); MONOCYTES % (AUTO) 16.4 %; NEUTROPHILS # (AUTO) 5.4 10^3/uL (1.5-6.6); NEUTROPHILS % (AUTO) 73.2 %; PLT - PLATELET COUNT 175 10^3/uL (130-450); RED BLOOD COUNT 3.59 10^6/uL (4.70-6.10); WHITE BLOOD COUNT 7.3 x10^3/uL (4.8-10.8)
[2018-05-01 13:03] LABS: INR 1.6 (0.8-1.2); PT - PROTHROMBIN TIME 18.2 secs (9.9-12.6)
[2018-05-01 13:07] LABS: ALBUMIN 3.4 g/dL (3.2-5.5); ALBUMIN/GLOBULIN RATIO 0.9 (1.0-2.2); ALKALINE PHOSPHATASE 57 IU/L (42-121); ALT ALANINE AMINOTRANSFERASE < 10 IU/L (10-60); AST ASPARTATE AMINOTRANSFERASE 16 IU/L (10-42); BILIRUBIN,TOTAL 0.5 mg/dL (0.2-1.0); BUN - BLOOD UREA NITROGEN 51 mg/dL (6-20); CALCIUM 8.6 mg/dL (8.5-10.3); CARBON DIOXIDE - CO2 27 mmol/L (21-32); CHLORIDE 98 mmol/L (101-111); CREATININE 1.9 mg/dL (0.6-1.2); GFR - MDRD 34 (>89); GLUCOSE 157 mg/dL (70-100); LIPASE 29 U/L (22-51); SODIUM 134 mmol/L (135-145); TOTAL PROTEIN 7.4 g/dL (6.7-8.2)
[2018-05-01 13:17] LABS: RBC MORPHOLOGY (MULTIPLE) 1+ ANISOCYTOSIS (NORMAL)
[2018-05-01] MEDS ORDERED: LIDOCAINE 1% 2 ML VIAL SUBQ ONE (13:17)
[2018-05-01] MEDS ORDERED: cefTRIAXone 1 GM VIAL IM STA (13:17)
[2018-05-01 13:39] VITALS: BP 134/63
== END 2018-05-01 13:37 | disposition home or self-care (01) ==
LOC: ED 11:48
DX: N39.0 Urinary tract infection, site not specified (principal); Z79.01 Long term (current) use of anticoagulants; I25.10 Atherosclerotic heart disease of native coronary artery without angina pectoris; F03.90 Unspecified dementia, unspecified severity, without behavioral disturbance, psychotic disturbance, mood disturbance, and anxiety; Z86.73 Personal history of transient ischemic attack (TIA), and cerebral infarction without residual deficits; Z95.2 Presence of prosthetic heart valve; Z95.1 Presence of aortocoronary bypass graft; Z85.46 Personal history of malignant neoplasm of prostate; Z92.3 Personal history of irradiation; Z93.6 Other artificial openings of urinary tract status
CPT/HCPCS: 36415; 80053; 81001; 81003; 83605; 83690; 85025; 85610; 87040; 87077; 87086; 87181; 96372; 99283; 99284

== ENCOUNTER 2018-05-25 14:00 | Outpatient (CLI) | payer MEDICARE, OTHER ==
[2018-05-25 15:58] LABS: ALBUMIN 3.3 g/dL (3.2-5.5); ALKALINE PHOSPHATASE 52 IU/L (42-121); ALT ALANINE AMINOTRANSFERASE < 10 IU/L (10-60); AST ASPARTATE AMINOTRANSFERASE 18 IU/L (10-42); BASOPHILS % (AUTO) 0.6 %; BILIRUBIN,TOTAL 0.6 mg/dL (0.2-1.0); BUN - BLOOD UREA NITROGEN 41 mg/dL (6-20); CALCIUM 8.6 mg/dL (8.5-10.3); CARBON DIOXIDE - CO2 29 mmol/L (21-32); CHLORIDE 99 mmol/L (101-111); CREATININE 1.4 mg/dL (0.6-1.2); EOSINOPHILS # (AUTO) 0.2 10^3/uL (0.0-0.7); GFR - MDRD 48 (>89); GLUCOSE 80 mg/dL (70-100); HGB - HEMOGLOBIN 10.1 g/dL (14.0-18.0); LYMPHOCYTES # (AUTO) 0.7 10^3/uL (1.5-3.5); LYMPHOCYTES % (AUTO) 13.4 %; MEAN CORPUSCULAR HGB CONC 32.9 g/dL (32.0-36.0); MEAN CORPUSCULAR VOLUME 85.3 fL (80.0-94.0); MEAN PLATELET VOLUME 7.7 fL (7.4-11.4); MONOCYTES # (AUTO) 0.8 10^3/uL (0.0-1.0); MONOCYTES % (AUTO) 15.3 %; NEUTROPHILS # (AUTO) 3.5 10^3/uL (1.5-6.6); NEUTROPHILS % (AUTO) 66.7 %; PLT - PLATELET COUNT 177 10^3/uL (130-450); RED CELL DISTRIBUTION WIDTH 14.4 % (12.0-15.0); SODIUM 135 mmol/L (135-145); TOTAL PROTEIN 6.6 g/dL (6.7-8.2); WHITE BLOOD COUNT 5.3 x10^3/uL (4.8-10.8)
== END 2018-05-25 14:01 | disposition home or self-care (01) ==
LOC: LAB.R 14:00
PROVIDERS: ATTEND Internal Medicine
DX: I13.0 Hypertensive heart and chronic kidney disease with heart failure and stage 1 through stage 4 chronic kidney disease, or unspecified chronic kidney disease (principal); I48.91 Unspecified atrial fibrillation
CPT/HCPCS: 80053; 85025

== ENCOUNTER 2018-06-08 13:26 | Outpatient (CLI) | payer MEDICARE, OTHER ==
[2018-06-08 19:08] LABS: PT - PROTHROMBIN TIME 33.3 secs (9.9-12.6)
== END 2018-06-08 13:27 ==
LOC: LAB.N 13:26
PROVIDERS: ATTEND Internal Medicine
DX: I48.91 Unspecified atrial fibrillation (principal); Z79.01 Long term (current) use of anticoagulants
CPT/HCPCS: 36415; 85610

== ENCOUNTER 2018-06-14 08:00 | Outpatient (CLI) | payer MEDICARE, OTHER | END 2018-06-14 08:01 | disposition home or self-care (01) | LOC: LAB.N 08:00 | PROVIDERS: ATTEND Internal Medicine | DX: I48.91 Unspecified atrial fibrillation (principal); Z79.01 Long term (current) use of anticoagulants | CPT/HCPCS: 85610 ==

== ENCOUNTER 2018-07-04 08:00 | Outpatient (CLI) | payer MEDICARE, OTHER | END 2018-07-04 23:59 | disposition home or self-care (01) | LOC: LAB.N 08:00 | PROVIDERS: ATTEND Internal Medicine | DX: I48.91 Unspecified atrial fibrillation (principal); Z79.01 Long term (current) use of anticoagulants | CPT/HCPCS: 85610 ==

== ENCOUNTER 2018-07-20 08:00 | Outpatient (CLI) | payer MEDICARE, OTHER | END 2018-07-20 23:59 | disposition home or self-care (01) | LOC: LAB.N 08:00 | PROVIDERS: ATTEND Internal Medicine | DX: I48.91 Unspecified atrial fibrillation (principal); Z79.01 Long term (current) use of anticoagulants | CPT/HCPCS: 85610 ==

== ENCOUNTER 2018-08-04 13:26 | Outpatient (CLI) | payer MEDICARE, OTHER | END 2018-08-04 23:59 | disposition home or self-care (01) | LOC: LAB.N 13:26 | PROVIDERS: ATTEND Internal Medicine | DX: I48.91 Unspecified atrial fibrillation (principal); Z79.01 Long term (current) use of anticoagulants | CPT/HCPCS: 85610 ==

== ENCOUNTER 2018-08-11 11:35 | Outpatient (CLI) | payer MEDICARE, OTHER | END 2018-08-11 11:36 | disposition home or self-care (01) | LOC: LAB.N 11:35 | PROVIDERS: ATTEND Internal Medicine | DX: I48.91 Unspecified atrial fibrillation (principal); Z79.01 Long term (current) use of anticoagulants | CPT/HCPCS: 85610 ==

== ENCOUNTER 2018-08-25 08:00 | Outpatient (CLI) | payer MEDICARE, OTHER | END 2018-08-25 23:59 | disposition home or self-care (01) | LOC: LAB.N 08:00 | PROVIDERS: ATTEND Internal Medicine | DX: I48.91 Unspecified atrial fibrillation (principal); Z79.01 Long term (current) use of anticoagulants | CPT/HCPCS: 85610 ==

== ENCOUNTER 2018-10-06 13:32 | Outpatient (CLI) | payer MEDICARE, OTHER | END 2018-10-06 23:59 | disposition home or self-care (01) | LOC: LAB.N 13:32 | PROVIDERS: ATTEND Family Medicine | DX: I48.91 Unspecified atrial fibrillation (principal); Z95.1 Presence of aortocoronary bypass graft | CPT/HCPCS: 85610 ==

== ENCOUNTER 2018-10-18 08:00 | Outpatient (CLI) | payer MEDICARE, OTHER | END 2018-10-18 23:59 | disposition home or self-care (01) | LOC: LAB.N 08:00 | PROVIDERS: ATTEND Family Medicine | DX: I48.91 Unspecified atrial fibrillation (principal); Z95.1 Presence of aortocoronary bypass graft | CPT/HCPCS: 85610 ==

== ENCOUNTER 2018-11-02 11:06 | Outpatient (CLI) | payer MEDICARE, OTHER | END 2018-11-02 23:59 | disposition home or self-care (01) | LOC: LAB.N 11:06 | PROVIDERS: ATTEND Family Medicine | DX: I48.91 Unspecified atrial fibrillation (principal); Z95.1 Presence of aortocoronary bypass graft | CPT/HCPCS: 85610 ==

== ENCOUNTER 2018-11-22 08:00 | Outpatient (CLI) | payer MEDICARE, OTHER | END 2018-11-22 23:59 | disposition home or self-care (01) | LOC: LAB.N 08:00 | PROVIDERS: ATTEND Family Medicine | DX: I48.91 Unspecified atrial fibrillation (principal); Z95.1 Presence of aortocoronary bypass graft | CPT/HCPCS: 85610 ==

== ENCOUNTER 2018-12-20 08:00 | Outpatient (CLI) | payer MEDICARE, OTHER | END 2018-12-20 23:59 | disposition home or self-care (01) | LOC: LAB.N 08:00 | PROVIDERS: ATTEND Family Medicine | DX: I48.91 Unspecified atrial fibrillation (principal); Z95.1 Presence of aortocoronary bypass graft | CPT/HCPCS: 85610 ==

== ENCOUNTER 2019-01-17 08:00 | Outpatient (CLI) | payer MEDICARE, OTHER | END 2019-01-17 08:01 | disposition home or self-care (01) | LOC: LAB.N 08:00 | PROVIDERS: ATTEND Family Medicine | DX: I48.91 Unspecified atrial fibrillation (principal); Z95.1 Presence of aortocoronary bypass graft | CPT/HCPCS: 85610 ==